=== PATIENT | female | born 1960 | race Caucasian/White ===

== ENCOUNTER 2016-12-21 11:11 | Observation (INO) ==
[2016-12-21 12:05] VITALS: BMI 52.3
[2016-12-21] MEDS: HYDROCODONE/APAP 7.5 MG/325 MG TABLET PO PRN ×3 (12:43→23:56)
[2016-12-21] MEDS: NICOTINE 21 MG PATCH TD SCH (12:44)
--- NOTE | 2016-12-21 13:40 | Consult Note ---
<Lynn Portillo - Last Filed: 12/21/16 18:11> Consult Information - Data of Consult Consult date: 12/21/16 Requesting Physician: Troy Martin DO Primary Care Provider: Ayan Mccarthy MD Family Provider: Ayan Mccarthy MD - Consult Narrative Reason for consult: preoperative clearance for vulvar abscess I&D History of present illness: Patient is a 56-year-old female at Dr. Mccarthy. She states approximately 2 weeks ago she noticed some itching which she thought was a yeast infection. Over the past 2 weeks she has noticed increasing swelling and pain. She presented to the emergency room 2 days ago and was started on clindamycin. She saw Dr. Martin in the office yesterday and he recommended incision and drainage of the abscess. They discussed pros and cons of doing this outpatient in the clinic versus under anesthesia and patient opted to have it done under anesthesia. Dr. Martin has consulted hospitalist service for preoperative clearance and management of chronic health problems. Patient was seen in her room with her family present. She is in moderate pain. Has been using Curtis 7.5 one to 2 pills when necessary. States that she feels nauseated due to the clindamycin. Is a smoker and has had her nicotine patch placed. She reports she is supposed to be on insulin and metformin but has not taken her medication for 7-8 months or more. Her daughter reports that she has not been taking them because they cost too much. At this time, the only routine medication she is taking is Vesicare for urinary incontinence. She reports she always has to wear a pad and currently has quite a bit of pain in the area of the abscess due to her incontinence. Patient also mentions that she has a breast mass in the left breast. She's noticed this for the last month and thinks it has grown over time. No family history of breast cancer, but has strong history of different types of cancer in the family. PFSH Medical History Diabetes mellitus type 2 CHF Hyperlipidemia COPD Obstructive sleep apnea Obesity Generalized anxiety disorder Chronic low back pain History of recurrent DVT Surgical History: Myringotomy. Tubal ligation. Appendectomy. Balloon dilation of esophagus (12/15/12). Colonoscopy with polypectomy (12/15/12). Cholecystectomy. Tonsillectomy Family History: Father-hyperlipidemia, diabetes, hypertension, CHF, obesity, thyroid disorder Mother-lung cancer, skin cancer Maternal grandmother-stroke Maternal grandfather-stroke Paternal grandfather-thyroid disorder, stomach cancer Daughter-ovarian cancer - Social History Smoking status: Current every day smoker (1 pack per day) Packs-years: 40 Substance use type: does not use Alcohol intake frequency: does not drink Housing: house Household members: spouse, children (son) Current occupational status: disabled (due to COPD, CHF-per patient) Social history: PCP-Dr. Mccarthy Review of Systems Comprehensive ROS: completed and no additional positive findings except those as stated - Respiratory Respiratory: Present: cough (chronic) - Gastrointestinal Gastrointestinal: Present: nausea (related to clindamycin) - Genitourinary Genitourinary: Present: dysuria (due to urine coming into contact with abscess.) , urinary incontinence (chronic), other (significant pain and swelling and redness to the vulvar area) Menstruation: post menopausal - Musculoskeletal Musculoskeletal: Present: back pain (chronic) - Integumentary/Breasts Breasts: mass (growing over the past month) Medications Home Medications Medication Instructions Recorded Confirmed Type LORazepam [Lorazepam] 1 mg PO BID PRN #0 02/22/12 12/21/16 History Benzocaine/Resorcin/Aloe/E,A,D 1 applic TOP PRN 12/19/16 12/21/16 History [Vagisil Cream] Hydrocodone/APAP 7.5/325 [Curtis 1 tab PO PRN PRN 12/19/16 12/21/16 History 7.5/325] Solifenacin Succinate [Vesicare] 10 mg PO DAILY 12/19/16 12/21/16 History Allergies Allergy/AdvReac Type Severity Reaction Status Date / Time Penicillins Allergy Severe SEIZURE Verified 12/19/16 11:23 Exam Vital Signs: Temperature 98.7 F 12/21/16 12:20 Pulse Rate 90 12/21/16 12:20 Respiratory Rate 20 12/21/16 12:20 Blood Pressure 148/89 H 12/21/16 12:20 Pulse Oximetry 97 12/21/16 12:20 Height/Weight/BMI: Height 1.6 m Weight 134.1 kg Body Mass Index 52.3 - Constitutional Present: mild distress (due to pain), well nourished, well developed, morbidly obese - Routine HEENT Exam Head: Present: normocephalic, atraumatic Eye: Present: EOMI, PERRL ENT: Present: mucous membranes moist, oropharynx clear. Absent: dentition normal (dentures) - Routine Neck Exam Present: supple - Routine Chest/Breast/Axilla Exam Breast: Present: mass (approximately 1 x 4 cm firm mass noted to the left breast at the 9:00-10:00 position.). Absent: tenderness, erythema, rashes - Routine Respiratory Exam Present: CTA bilaterally. Absent: wheezes (with deep breaths this causes cough , some coarse sounds with coughing spell) - Routine Cardiovascular Exam Present: RRR, S1, S2. Absent: murmur - Routine Abdominal Exam Present: soft, normoactive bowel sounds, non distended. Absent: tenderness - Routine Exam External: Present: swelling (approximately 10 cm area of induration to the right labia majora the significance redness, tenderness and swelling.), vulvar erythema, vulvar tenderness - Routine Extremities Exam Present: normal capillary refill - Routine Skin Exam Present: dry, warm - Routine Neurological Exam Present: alert, oriented X3 Cranial nerves III through XII grossly intact - Routine Psychiatric Exam Present: normal affect, normal thought process, cooperative Results - Labs CBC & Chem 7: 12/21/16 14:01 12/21/16 14:47 Assessment and Plan (1) Left breast mass Current visit: Yes Status: Acute Assessment and Plan: Assessment Vulvar abscess of the right labia majora Leukocytosis Breast mass-left breast (new finding) Diabetes mellitus type 2-uncontrolled CHF Hyperlipidemia COPD Obstructive sleep apnea Obesity Generalized anxiety disorder Chronic low back pain History of recurrent DVT Plan Appreciate consultation from Dr. Martin for preoperative evaluation of this patient with multiple chronic problems and noncompliance. Patient will require further workup prior to proceeding with surgery. She's been off almost all of her meds for the last 7-8 months. Clindamycin 300 mg IV every 6 hours for vulvar infection. Continue Curtis PRN and add when necessary morphine IV for pain. Consult Dr. Hwang for cardiac clearance. EKG showed normal sinus rhythm with evidence of possible past anterior infarct. Patient reports previous episode of chest pain which she thought could have been a heart attack for which she never sought treatment. 2-D echo has been ordered. Troponin is pending. Will place patient on telemetry. Lipids reviewed from PCPs office. Previously on Lipitor 20 mg daily. Can restart this on dismissal. Will monitor blood sugars and institute insulin sliding scale. Recommend restarting her metformin post-op. Will start DuoNeb treatments and incentive spirometry for her COPD. She has previously been prescribed albuterol and Dulera for her lung disease. Discussed finding of breast mass with Dr. Martin. This can be followed up outpatient through her PCP's (Dr. Mccarthy) office. This information was given to Dr. Mccarthy nurse. Lovenox and SCDs given her DVT history. Await clearance from cardiology prior to undergoing anesthesia. Hospital Course Summary Disclaimer: The visit summary below is not to be considered part of the above Progress Note. Hospital Course: 12/21/16-Hospitalist consult Appreciate consultation from Dr. Martin for preoperative evaluation of this patient with multiple chronic problems and noncompliance. Patient will require further workup prior to proceeding with surgery. She's been off almost all of her meds for the last 7-8 months. Clindamycin 300 mg IV every 6 hours for vulvar infection. Continue Curtis PRN and add when necessary morphine IV for pain. Consult Dr. Hwang for cardiac clearance. EKG showed normal sinus rhythm with evidence of possible past anterior infarct. Patient reports previous episode of chest pain which she thought could have been a heart attack for which she never sought treatment. 2-D echo has been ordered. Troponin is pending. Will place patient on telemetry. Lipids reviewed from PCPs office. Previously on Lipitor 20 mg daily. Can restart this on dismissal. Will monitor blood sugars and institute insulin sliding scale. Recommend restarting her metformin post-op. Will start DuoNeb treatments and incentive spirometry for her COPD. She has previously been prescribed albuterol and Dulera for her lung disease. Discussed finding of breast mass with Dr. Martin. This can be followed up outpatient through her PCP's (Dr. Mccarthy) office. This information was given to Dr. Mccarthy nurse. Lovenox and SCDs given her DVT history. Await clearance from cardiology prior to undergoing anesthesia. Sepsis Assessment - Evaluation Sepsis screening result: No Definite Risk <Kareem Miranda - Last Filed: 12/21/16 18:51> Consult Information - Data of Consult Requesting Physician: Troy Martin DO Primary Care Provider: Ayan Mccarthy MD Family Provider: Ayan Mccarthy MD [facility] Patient Stated Medical History Cerebrovascular Accident Yes: 10 years ago Congestive Heart Failure Yes Asthma Yes Chronic Obstructive Pulmonary Yes Disease (COPD) Diabetes Mellitus Type 2 Yes Hx Renal Disease No Hx Urinary Tract Infection Yes Osteoarthritis Yes: legs Gonorrhea Yes Anesthesia Reactions Yes: doesn't wake up Other Reproductive Yes: labial infection Exam Vital Signs: Temperature 96.3 F L 12/21/16 15:59 Pulse Rate 78 12/21/16 17:19 Respiratory Rate 16 12/21/16 17:19 Blood Pressure 171/89 H 12/21/16 15:59 Pulse Oximetry 94 12/21/16 17:19 Height/Weight/BMI: Height 5 ft 3 in Weight 134.1 kg Body Mass Index 52.3 Results - Labs CBC & Chem 7: 12/21/16 14:01 12/21/16 14:47 - ABG Interpretation ABG results: 12/21/16 18:11 ABG pH 7.460 H ABG pCO2 40 ABG pO2 69 L ABG HCO3 28 H ABG Total CO2 29.6 H ABG O2 Saturation 95.0 ABG Base Excess 4.2 H Assessment and Plan (1) Left breast mass Current visit: Yes Status: Acute Assessment and Plan: Above pt was seen and examined independently by me; agree with above plan of care. - Pt has had DVT in the past - Will check an ABG - Also due to H.O CHF will consult cardiology. She may need to have a 2-D echo. - Once cleared by cardiology may proceed with surgery - Pt has a breast mass - will order U/S Hospital Course Summary Disclaimer: The visit summary below is not to be considered part of the above Progress Note.
--- NOTE | 2016-12-21 15:30 | XRay Report ---
LOCATION OF DICTATION: [facility] EXAM: XR chest 2V HISTORY: pre-op COMPARISON: November 25, 2011. FINDINGS: The heart size is normal. The mediastinal configuration is unremarkable. There are no consolidating opacities or pleural effusions. There is no evidence for a pneumothorax. The osseous structures are within normal limits. IMPRESSION: No acute cardiopulmonary abnormality is identified. .
[2016-12-21] MEDS: CLINDAMYCIN PB 300 MG/50 ML BAG IV SCH ×2 (15:49→20:19)
[2016-12-21] MEDS: MORPHINE SULFATE 2 MG SYRINGE IVP PRN ×3 (15:49→23:57)
[2016-12-21] MEDS: ENOXAPARIN 40 MG/0.4 ML INJECTION SQ SCH (15:50)
--- NOTE | 2016-12-21 16:42 | Cardiology Consult Note ---
History of Present Illness Consult date: 12/21/16 <Kiley Dinero 12/21/16 16:53> Requesting physician: Kareem Miranda <Kiley Dinero 12/21/16 16:53> Consult reason: congestive heart failure <Kiley Dinero 12/21/16 16:53> Chief complaint: CHF, cardiac risk factors <Kiley Dinero 12/21/16 16:53> History of present illness: Teresa is a 56-year-old female of Dr. Mccarthy. She states approximately 2 weeks ago she noticed some itching which she thought was a yeast infection. Over the past 2 weeks she has noticed increasing swelling and pain. She presented to the emergency room 2 days ago and was started on clindamycin. She saw Dr. Martin in the office yesterday and he recommended incision and drainage of the abscess. They discussed pros and cons of doing this outpatient in the clinic versus under anesthesia and patient opted to have it done under anesthesia. Dr. Martin consulted hospitalist service for preoperative clearance and management of chronic health problems. She is seen in her room with her family present. She reports episodes of chest pain/ pressure which is brought on by coughing which she never sought treatment. She reports chronic cough related to COPD and states she has smoked for 40 years and has no plans to quit. Dr. Hwang is consulted for cardiac clearance. EKG showed normal sinus rhythm with evidence of possible past anterior infarct. 2-D echo has been ordered. Troponin is pending. Echo and Nuclear stress from 2007 reviewed. <Kiley Dinero 12/21/16 16:53> Review of Systems - Constitutional Constitutional: Absent: chills, fever(s), weight gain, weight loss <Kiley Dinero 12/21/16 16:53> - EENMT Eyes: Absent: change in vision <Kiley Dinero 12/21/16 16:53> Balance: Absent: vertigo <Kiley Dinero 12/21/16 16:53> Mouth/Throat: Absent: sore throat <Kiley Dinero 12/21/16 16:53> - Cardiovascular Cardiovascular: Present: chest pain, dyspnea on exertion. Absent: palpitations , syncope <BarKiley Johnson 12/21/16 16:53> Vascular: Absent: pedal edema <Kiley Dinero 12/21/16 16:53> - Respiratory Respiratory: Present: cough, dyspnea, dyspnea on exertion, wheezing <Kiley Dinero 12/21/16 16:53> - Gastrointestinal Gastrointestinal: Absent: diarrhea, nausea, vomiting <Kiley Dinero 16:53> - Genitourinary Genitourinary: Present: as per HPI. Absent: dysuria <Kiley Dinero 16:53> Menstruation: post menopausal <Kiley Dinero 12/21/16 16:53> - Integumentary/Breasts Breasts: mass (growing over the past month) <Kiley Dinero 12/21/16 16:53> - Neurological Neurological: Absent: dizziness <Kiley Dinero 12/21/16 16:53> - Endocrine Endocrine: Absent: palpitations <Kiley Dinero 12/21/16 16:53> [facility] Patient Stated Medical History Cerebrovascular Accident Yes: 10 years ago Congestive Heart Failure Yes Asthma Yes Chronic Obstructive Pulmonary Yes Disease (COPD) Sleep Apnea Yes: Does not use CPAP Diabetes Mellitus Type 1 Yes: Uncontrolled/ patient took herself off insulin 1 year ago A1C 11.3 Diabetes Mellitus Type 2 Yes Hx Renal Disease No Hx Urinary Tract Infection Yes Osteoarthritis Yes: legs Gonorrhea Yes Anesthesia Reactions Yes: doesn't wake up Other Reproductive Yes: labial infection <JyotiSilvino pat - 12/29/16 07:57> Patient Stated Medical History Cerebrovascular Accident Yes: 10 years ago Congestive Heart Failure Yes Asthma Yes Chronic Obstructive Pulmonary Yes Disease (COPD) Diabetes Mellitus Type 2 Yes Hx Renal Disease No Hx Urinary Tract Infection Yes Osteoarthritis Yes: legs Gonorrhea Yes Anesthesia Reactions Yes: doesn't wake up Other Reproductive Yes: labial infection <Kiley Dinero 12/21/16 16:53> Surgical History: Myringotomy. Tubal ligation. Appendectomy. Balloon dilation of esophagus (12/15/12). Colonoscopy with polypectomy (12/15/12). Cholecystectomy. Tonsillectomy <Kiley Dinero 12/21/16 16:53> Family History: Father-hyperlipidemia, diabetes, hypertension, CHF, obesity, thyroid disorder Mother-lung cancer, skin cancer Maternal grandmother-stroke Maternal grandfather-stroke Paternal grandfather-thyroid disorder, stomach cancer Daughter-ovarian cancer <Kiley Dinero 12/21/16 16:53> - Social History Smoking status: Current every day smoker (1 pack per day) <Kiley Dinero 16:53> Packs-years: 40 <Kiley Dinero 12/21/16 16:53> Time spent discussing smoking cessation with patient: 3 to 10 minutes < Kiley Dinero 12/21/16 16:53> Substance use type: does not use <Kiley Dinero 12/21/16 16:53> Alcohol intake frequency: does not drink <Kiley Dinero 12/21/16 16:53> Housing: house <Kiley Dinero 12/21/16 16:53> Household members: spouse, children <Kiley Dinero 12/21/16 16:53> Current occupational status: disabled <Kiley Dinero 12/21/16 16:53> Current residence: Apartment/Private Home <Kiley Dinero 12/21/16 16:53> Medications Home Medications Medication Instructions Recorded Confirmed Type LORazepam [Lorazepam] 1 mg PO BID PRN #0 02/22/12 12/21/16 History Benzocaine/Resorcin/Aloe/E,A,D 1 applic TOP PRN 12/19/16 12/21/16 History [Vagisil Cream] Hydrocodone/APAP 7.5/325 [[place] 1 tab PO PRN PRN 12/19/16 12/21/16 History 7.5/325] Solifenacin Succinate [Vesicare] 10 mg PO DAILY 12/19/16 12/21/16 History <Silvino Hwang - 12/29/16 07:57> Allergies Allergy/AdvReac Type Severity Reaction Status Date / Time Penicillins Allergy Severe SEIZURE Verified 12/19/16 11:23 <Silvino Hwang - 12/29/16 07:57> Exam Vital signs: Temperature 98.5 F 12/22/16 10:45 Pulse Rate 99 12/22/16 14:15 Respiratory Rate 14 12/22/16 13:15 Blood Pressure 123/65 12/22/16 14:15 Pulse Oximetry 94 12/22/16 14:15 <Silvino Hwang - 12/29/16 07:57> Temperature 96.3 F L 12/21/16 15:59 Pulse Rate 88 12/21/16 16:00 Respiratory Rate 20 12/21/16 15:59 Blood Pressure 171/89 H 12/21/16 15:59 Pulse Oximetry 93 12/21/16 15:59 <Kiley Dinero 12/21/16 16:53> - Constitutional no acute distress, morbidly obese, cooperative <Kiley Dinero 12/21/16 16: 53> - Routine HEENT Exam Head: Present: normocephalic <Kiley Dinero 12/21/16 16:53> ENT: Present: mucous membranes moist <Kiley Dinero 12/21/16 16:53> - Routine Neck Exam Absent: JVD, carotid bruit <Kiley Dinero 12/21/16 16:53> - Routine Chest/Breast/Axilla Exam Chest wall: Absent: tenderness <Kiley Dinero 12/21/16 16:53> - Routine Respiratory Exam Present: wheezes. Absent: CTA bilaterally <Kiley Dinero 12/21/16 16:53> - Routine Cardiovascular Exam Present: RRR, no murmur. Absent: JVD <Kiley Dinero 12/21/16 16:53> - Routine Abdominal Exam Present: soft, normoactive bowel sounds <Kiley Dinero 12/21/16 16:53> - Routine Extremities Exam Present: no edema <Kiley Dinero 12/21/16 16:53> - Routine Skin Exam Present: intact, dry, warm <Kiley Dinero 12/21/16 16:53> - Routine Neurological Exam Present: alert, oriented X3 <Kiley Dinero 12/21/16 16:53> - Routine Psychiatric Exam Present: normal affect, normal thought process <Kiley Dinero 12/21/16 16: 53> Results 12/21/16 14:01 12/21/16 14:47 <Silvino Hwang 12/29/16 07:57> Cardiac Enzymes 12/21/16 12/21/16 Range/Units 14:47 14:47 AST 26 (14-36) U/L Troponin I < 0.012 (0-0.12) ng/ml CBC 12/21/16 Range/Units 14:01 WBC 12.5 H (4.5-11.0) T/MM3 RBC 4.59 (4.00-5.20) M/MM3 Hgb 12.8 (12-16) GM/DL Hct 38.6 (36-46) % Plt Count 205 (130-400) T/MM3 Neut # 9.0 H (1.8-7.7) T/MM3 Lymph # 2.4 (1-4.8) T/MM3 [place] # 0.8 (0-0.8) T/MM3 Eos # 0.2 (0-0.5) T/MM3 Baso # 0.0 (0-0.2) T/MM3 Comprehensive Metabolic Panel 12/21/16 Range/Units 14:47 Sodium 135 (134-144) MEQ/L Potassium 4.4 (3.6-5) MEQ/L Chloride 102 (98-107) MEQ/L Carbon Dioxide 24 (22-30) MEQ/L BUN 9.0 (7-17) MG/DL Creatinine 0.5 L (0.7-1.2) MG/DL Glucose 276 H (65-110) MG/DL Calcium 9.4 (8.4-10.2) MG/DL AST 26 (14-36) U/L ALT 24 (9-52) U/L Alkaline Phosphatase 126 (38-126) U/L Total Protein 7.3 (6.3-8.2) G/DL Albumin 3.9 (3.5-5.0) G/DL Intake and Output 12/21/16 12/21/16 12/21/16 06:59 14:59 22:59 Intake Total 50 / 50 Balance 50 / 50 Intake: IV 50 / 50 CLEOCIN PREMIX 300 mg In 50 / 50 50 ml @ 100 mls/hr IV Q6H [facility] Rx#:[id number] Other: # Bowel Movements 0 Weight 295 lb 10.238 oz Patient Weight 12/22/16 06:59 Weight 295 lb 10.238 oz Laboratory Results - last 48 hr 12/21/16 12/21/16 12/21/16 13:22 14:01 14:12 WBC 12.5 H RBC 4.59 Hgb 12.8 Hct 38.6 MCV 84.1 MCH 27.9 MCHC 33.2 RDW Std Deviation 41.2 Plt Count 205 MPV 10.2 Immature Gran % (Auto) 0.2 Neut % (Auto) 72.2 H Lymph % (Auto) 19.1 L [place] % (Auto) 6.6 Eos % (Auto) 1.7 Baso % (Auto) 0.2 Neut # 9.0 H Lymph # 2.4 [place] # 0.8 Eos # 0.2 Baso # 0.0 Abs Immat Gran (auto) 0.02 Turbidity Sodium Potassium Chloride Carbon Dioxide Anion Gap BUN Creatinine GFR Calculation BUN/Creatinine Ratio Glucose Hemoglobin A1c 11.7 H Calculated Osmolality Calcium Total Bilirubin Icterus Index AST ALT Alkaline Phosphatase Troponin I Total Protein Albumin Globulin Albumin/Globulin Ratio Specimen Hemolysis Ur Collection Type Urine Color Urine Clarity Urine pH Ur Specific [place] Urine Protein Urine Glucose (UA) Urine Ketones Urine Occult Blood Urine Nitrate Urine Bilirubin Urine Urobilinogen Ur Leukocyte Esterase Urinalysis Comment Specimen Comment Lab to recollect Tests Not Done Cmp Reason Tests Not Done Hemolyzed specimen 12/21/16 12/21/16 12/21/16 14:47 14:47 15:26 WBC RBC Hgb Hct MCV MCH MCHC RDW Std Deviation Plt Count MPV Immature Gran % (Auto) Neut % (Auto) Lymph % (Auto) [place] % (Auto) Eos % (Auto) Baso % (Auto) Neut # Lymph # [place] # Eos # Baso # Abs Immat Gran (auto) Turbidity < 20 Sodium 135 Potassium 4.4 Chloride 102 Carbon Dioxide 24 Anion Gap 9 BUN 9.0 Creatinine 0.5 L GFR Calculation 128 BUN/Creatinine Ratio 18 Glucose 276 H Hemoglobin A1c Calculated Osmolality 269 Calcium 9.4 Total Bilirubin 0.80 Icterus Index < 2 AST 26 ALT 24 Alkaline Phosphatase 126 Troponin I < 0.012 Total Protein 7.3 Albumin 3.9 Globulin 3.4 Albumin/Globulin Ratio 1.1 Specimen Hemolysis 57 H 56 H Ur Collection Type Urine, clean catch Urine Color Yellow Urine Clarity Clear Urine pH 5.0 Ur Specific [place] >=1.030 H Urine Protein Trace A Urine Glucose (UA) 2+ A Urine Ketones Negative Urine Occult Blood Trace-intact Urine Nitrate Negative Urine Bilirubin Negative Urine Urobilinogen 0.2 Ur Leukocyte Esterase Negative Urinalysis Comment Microscopic not ind. Specimen Comment Tests Not Done Reason Tests Not Done <Kiley Dinero - 12/21/16 16:53> - Imaging and Cardiology Echo: pending <Kiley Dinero - 12/21/16 16:53> EKG results: image reviewed <Kiley Dinero - 12/21/16 16:53> Imaging & Cardiology Narrative: Date of Exam: 12/21/16 Ordering Provider: Troy Martin DO Type of Exam(s): XR chest 2V Reason for Exam(s): pre-op LOCATION OF DICTATION: [place] EXAM: XR chest 2V HISTORY: pre-op COMPARISON: November 25, 2011. FINDINGS: The heart size is normal. The mediastinal configuration is unremarkable. There are no consolidating opacities or pleural effusions. There is no evidence for a pneumothorax. The osseous structures are within normal limits. IMPRESSION: No acute cardiopulmonary abnormality is identified. 12/21/16 16:47 Date of Exam: 12/21/16 Type of Exam(s): US echo doppler complete DATE OF PROCEDURE December 21, 2016 This is a two-dimensional echo with spectral Doppler, color-flow and M-mode. It was obtained in a patient with preop clearance and history of congestive heart failure and multiple risk factors for coronary artery disease. Left atrial dimension is at the upper limits of normal. Left ventricle end- diastolic dimension is normal. Left ventricle wall thickness is normal. LV systolic function is normal with ejection fraction of 62%. Right atrium is normal. Right ventricle is normal. Aortic root dimension is normal. Mitral valve is morphologically normal with trace of mitral regurgitation. Aortic valve was not visualized well, but Doppler studies indicate no stenosis or insufficiency. Tricuspid valve shows trace of tricuspid regurgitation with normal estimated pulmonary artery systolic pressure of 31. Pulmonary valve was not visualized. There is no pericardial effusion. IMPRESSION 1. Technically difficult study. 2. Normal LV systolic function with ejection fraction of 62%. 3. Trace of mitral regurgitation. 4. Trace of tricuspid regurgitation with normal estimated pulmonary artery systolic pressure of 31 <Kiley Dinero - 12/22/16 13:58> - EKG Interpretation EKG: sinus rhythm <Kiley Dinero - 12/21/16 16:53> EKG interpretations - EKG EKG results cardiology: sinus rhythm <Kiley Dinero Elizabeth - 12/21/16 16:53> - Blocks, axis, hypertrophy, ST abn AV and intraventricular conduction: left anterior fascicular block <Bar Kiley Johnson - 12/21/16 16:53> Assessment and Plan - Attestation Attestation Narrative: 12/29/16 07:57 Recommendation After examining the patient I agree with the above assessment. I am involved in the formulation of the patient's plan of care. <Silvino Hwang - 12/29/16 07:57> - Assessment and Plan (1) Vulvar abscess Status: Acute (2) Mixed hyperlipidemia Status: Acute (3) COPD (chronic obstructive pulmonary disease) Status: Acute (4) Diabetes mellitus type 2, uncontrolled Status: Acute (5) Morbid obesity with BMI of 50.0-59.9, adult Status: Acute (6) Sleep apnea Status: Acute <Silvino Hwang - 12/29/16 07:57> (1) Vulvar abscess Status: Acute Surgical incision and drainage of abscess is a low risk procedure that the patient should proceed with as planned. Plan outpatient stress test for further evaluation of chest pain. Thank you for allowing us to participate in the care of this patient. (2) Mixed hyperlipidemia Status: Acute (3) COPD (chronic obstructive pulmonary disease) Status: Acute (4) Diabetes mellitus type 2, uncontrolled Status: Acute (5) Morbid obesity with BMI of 50.0-59.9, adult Status: Acute (6) Sleep apnea Status: Acute <BarKiley gan - 12/22/16 13:58> Hospital Course Summary Disclaimer: The visit summary below is not to be considered part of the above Progress Note. <Silvino Hwang - 12/29/16 07:57> The visit summary below is not to be considered part of the above Progress Note. <Kiley Dinero - 12/21/16 16:53> Hospital Course: 12/21/16-Hospitalist consult Appreciate consultation from Dr. Martin for preoperative evaluation of this patient with multiple chronic problems and noncompliance. Patient will require further workup prior to proceeding with surgery. She's been off almost all of her meds for the last 7-8 months. Clindamycin 300 mg IV every 6 hours for vulvar infection. Continue [place] PRN and add when necessary morphine IV for pain. Consult Dr. Hwang for cardiac clearance. EKG showed normal sinus rhythm with evidence of possible past anterior infarct. Patient reports previous episode of chest pain which she thought could have been a heart attack for which she never sought treatment. 2-D echo has been ordered. Troponin is pending. Will place patient on telemetry. Lipids reviewed from PCPs office. Previously on Lipitor 20 mg daily. Can restart this on dismissal. Will monitor blood sugars and institute insulin sliding scale. Recommend restarting her metformin post-op. Will start DuoNeb treatments and incentive spirometry for her COPD. She has previously been prescribed albuterol and Dulera for her lung disease. Discussed finding of breast mass with Dr. Martin. This can be followed up outpatient through her PCP's (Dr. Mccarthy) office. This information was given to Dr. Mccarthy nurse. Lovenox and SCDs given her DVT history. Await clearance from cardiology prior to undergoing anesthesia. 12/21/16 Cardiology Surgical incision and drainage of abscess is a low risk procedure that the patient should proceed with as planned. Plan outpatient stress test for further evaluation of chest pain. Thank you for allowing us to participate in the care of this patient. <Kiley Dinero - 12/22/16 13:58> Sepsis Assessment - Evaluation Sepsis screening result: No Definite Risk <Kiley Dinero - 12/21/16 16:53>
[2016-12-21] MEDS: ALBUTEROL/IPRATROPIUM 2.5mg-0.5mg/3ml NEB AEROSOL SCH ×3 (16:49→20:58)
[2016-12-21] MEDS: INSULIN ASPART 100unit/ml INJECTION SQ PRN ×2 (17:21→20:35)
--- NOTE | 2016-12-21 18:07 | OB/GYN History & Physical ---
- History of Present Illness Date of Admission: 12/21/16 11:22 Reason for Admission: other (Labial Abscess) History of Present Illness: Pt had onset of itching x 1 week that lead to increase in itching and then pain. Was seen in ED over weekend no abscess appreciated for drainage but cellulitis suspected. started on clindamycin secondary to PCN allergy. Was seen in Clinic today for f/u large 10 cm labial abscess noted. Discussion of I&D in office vs in OR. Pt preferred OR. Significant comorbidities and pt admitted for hospitalist consult and preoperative evaluation. Review of Systems - Constitutional Constitutional: Absent: anorexia, chills - EENT Eyes: Absent: as per HPI, blurry vision - Cardiovascular Cardiovascular: Absent: chest pain - Respiratory Respiratory: Present: cough - Gastrointestinal Gastrointestinal: Absent: abdominal pain - Genitourinary Genitourinary: Present: vaginal pruritus Menstruation: Present: post menopausal - Musculoskeletal Musculoskeletal: Absent: abnormal gait - Integumentary/Breasts Integumentary: Present: swelling - Neurological Neurological: Absent: abnormal gait - Psychiatric Psychiatric: Absent: abnormal sleep pattern - Endocrine Endocrine: Absent: cold intolerance PFSH Patient Stated Medical History Cerebrovascular Accident Yes: 10 years ago Congestive Heart Failure Yes Asthma Yes Chronic Obstructive Pulmonary Yes Disease (COPD) Diabetes Mellitus Type 2 Yes Hx Renal Disease No Hx Urinary Tract Infection Yes Osteoarthritis Yes: legs Gonorrhea Yes Anesthesia Reactions Yes: doesn't wake up Other Reproductive Yes: labial infection Surgical History: Myringotomy. Tubal ligation. Appendectomy. Balloon dilation of esophagus (12/15/12). Colonoscopy with polypectomy (12/15/12). Cholecystectomy. Tonsillectomy - Social History Smoking status: Current every day smoker (1 pack per day) Time spent discussing smoking cessation with patient: 3 to 10 minutes Substance use type: does not use Alcohol intake frequency: does not drink Household members: spouse Current residence: Apartment/Private Home Medications Home Medications Medication Instructions Recorded Confirmed Type LORazepam [Lorazepam] 1 mg PO BID PRN #0 02/22/12 12/21/16 History Benzocaine/Resorcin/Aloe/E,A,D 1 applic TOP PRN 12/19/16 12/21/16 History [Vagisil Cream] Hydrocodone/APAP 7.5/325 [[place] 1 tab PO PRN PRN 12/19/16 12/21/16 History 7.5/325] Solifenacin Succinate [Vesicare] 10 mg PO DAILY 12/19/16 12/21/16 History Allergies Allergy/AdvReac Type Severity Reaction Status Date / Time Penicillins Allergy Severe SEIZURE Verified 12/19/16 11:23 [employer] Exam Vital signs: Temperature 96.3 F L 12/21/16 15:59 Pulse Rate 78 12/21/16 17:19 Respiratory Rate 16 12/21/16 17:19 Blood Pressure 171/89 H 12/21/16 15:59 Pulse Oximetry 94 12/21/16 17:19 - Constitutional Present: no acute distress, morbidly obese, cooperative - Routine HEENT Exam Head: Present: normocephalic Eye: Present: EOMI, PERRL ENT: Present: mucous membranes moist - Routine Neck Exam Present: supple. Absent: JVD, carotid bruit - Routine Chest/Breast/Axilla Exam Chest wall: Absent: tenderness Breast: Present: mass (approximately 1 x 4 cm firm mass noted to the left breast at the 9:00-10:00 position.). Absent: tenderness, erythema, rashes - Routine Respiratory Exam Present: wheezes. Absent: CTA bilaterally - Routine Cardiovascular Exam Present: RRR, no murmur. Absent: JVD - Routine Abdominal Exam Present: soft, normoactive bowel sounds - Detailed Pelvic Exam Vulva: Present: erythema, lesion - Routine Extremities Exam Extremities: Present: no edema - Routine Neurological Exam Present: oriented X3 [employer] Results - Labs CBC & Chem 7: 12/21/16 14:01 12/21/16 14:47 Labs: UA Ur Collection Type Urine, clean catch 12/21/16 15:26 Urine Color Yellow (YELLOW) 12/21/16 15:26 Urine pH 5.0 (5.0-8.0) 12/21/16 15:26 Ur Specific [place] >=1.030 (1.015-1.025) H 12/21/16 15:26 Urine Protein Trace (NEGATIVE) A 12/21/16 15:26 Urine Glucose (UA) 2+ (NEGATIVE) A 12/21/16 15:26 Urine Ketones Negative (NEGATIVE) 12/21/16 15:26 Urine Occult Blood Trace-intact (NEGATIVE) 12/21/16 15:26 Urine Nitrate Negative (NEGATIVE) 12/21/16 15:26 Urine Bilirubin Negative (NEGATIVE) 12/21/16 15:26 Urine Urobilinogen 0.2 EU/DL (NORMAL) 12/21/16 15:26 Ur Leukocyte Esterase Negative (NEGATIVE) 12/21/16 15:26 Assessment and Plan (1) Other abscess of vulva Current visit: Yes Status: Acute Admit for pre op eval, scheduled for I&D of labial abscess in OR 12/22/16. Discussed in office at apt extensively including R/B/A Hospitalist consulted for pre op eval and management of comorbidities, appreciate recs.
[2016-12-22] MEDS: CLINDAMYCIN PB 300 MG/50 ML BAG IV SCH ×3 (02:37→15:41)
[2016-12-22] MEDS ORDERED: LR 1,000 ML IV SCH ×2 (06:00→08:45)
[2016-12-22] MEDS: INSULIN ASPART 100unit/ml INJECTION SQ PRN ×2 (06:11→12:01)
[2016-12-22] MEDS: MORPHINE SULFATE 2 MG SYRINGE IVP PRN ×2 (06:11→12:03)
[2016-12-22] MEDS: ALBUTEROL/IPRATROPIUM 2.5mg-0.5mg/3ml NEB AEROSOL SCH ×2 (07:27→11:36)
[2016-12-22] MEDS: NICOTINE 21 MG PATCH TD SCH (08:08)
[2016-12-22] MEDS ORDERED: PROPOFOL 1,000 MG/100 ML VIAL IV ONE (08:49)
[2016-12-22] MEDS ORDERED: BUPIVACAINE 0.25%/EPI 1:200,000 30ml SDV ONE (08:53)
[2016-12-22] MEDS ORDERED: FentaNYL 100 MCG/2 ML INJECTION ONE (08:54)
--- NOTE | 2016-12-22 08:56 | Anesthesia Preoperative Report ---
Anesthesia Preoperative Record - Date and Time Date: 12/22/16 Preoperative Diagnosis: Right Labial Abscess Proposed Procedure: I&D of vulvar abscess NPO Since Date: 12/22/16 NPO Since Time: 00:00 Allergies/Adverse Reactions: Allergies Allergy/AdvReac Type Severity Reaction Status Date / Time Penicillins Allergy Severe SEIZURE Verified 12/19/16 11:23 - Vital Signs Vital Signs: Temperature 98.1 F 12/22/16 08:32 Pulse Rate 95 12/22/16 08:32 Respiratory Rate 18 12/22/16 08:32 Blood Pressure 130/79 12/22/16 08:32 Pulse Oximetry 98 12/22/16 08:51 Height and Weight: Height 1.6 m Weight 135.4 kg Body Mass Index 52.3 - Medications Inpatient Medications: Current Medications Acetaminophen/Hydrocodone Bitart ([place] 7.5/325) 1 tab PO Q4H PRN PRN Reason: Pain Last Admin: 12/21/16 23:56 Dose: 1 tab Albuterol/Ipratropium (Duoneb) 3 ml AEROSOL QID [facility] Last Admin: 12/22/16 07:27 Dose: 3 ml Enoxaparin Sodium (Lovenox) 40 mg SQ DAILY [facility] Last Admin: 12/21/16 15:50 Dose: 40 mg Clindamycin Phosphate (Cleocin Premix) 300 mg in 50 mls @ 100 mls/hr IV Q6H [facility] Last Infusion: 12/22/16 03:35 Dose: Infused Lactated Ringer's (Lactated Ringers) 1,000 mls @ 125 mls/hr IV .Q8H [facility] Last Infusion: 12/22/16 08:25 Dose: 0 mls/hr Lactated Ringer's (Lactated Ringers) 1,000 mls @ 50 mls/hr IV .Q20H [facility] Last Admin: 12/22/16 08:51 Dose: 50 mls/hr Insulin Aspart (Novolog) 0 unit SQ SS PRN; Protocol PRN Reason: Hyperglycemia Last Admin: 12/22/16 06:11 Dose: 3 unit Morphine Sulfate (Morphine Sulfate Inj) 2 mg IVP Q3-4HR PRN PRN Reason: Pain Last Admin: 12/22/16 06:11 Dose: 2 mg Nicotine (Nicoderm) 21 mg TD DAILY [facility] Last Admin: 12/22/16 08:08 Dose: 21 mg Nicotine (Nicotine Patch Removal) 1 removal TD DAILY [facility] Last Admin: 12/22/16 08:09 Dose: 1 removal Nystatin (Mycostatin) 1 applic TP BID [facility] Last Admin: 12/22/16 04:04 Dose: 1 applic Home Medications: Home Medications Medication Instructions Recorded Confirmed Type RX: LORazepam [Lorazepam] 1 mg PO BID PRN #0 02/22/12 12/21/16 History RX: Benzocaine/Resorcin/Aloe/E,A,D 1 applic TOP PRN 12/19/16 12/21/16 History [Vagisil Cream] RX: Hydrocodone/APAP 7.5/325 1 tab PO PRN PRN 12/19/16 12/21/16 History [[place] 7.5/325] RX: Solifenacin Succinate 10 mg PO DAILY 12/19/16 12/21/16 History [Vesicare] Is Patient on Beta Dillan?: No - Medical History Respiratory: Reports: Chronic Obstructive Pulmonary Disease (COPD), Sleep Apnea (Does not use CPAP) Cardiovascular: Reports: Congestive Heart Failure Gastrointestional: Reports: Morbid Obesity Renal/Endocrine: Reports: Diabetes Mellitus Type 1 (Uncontrolled/ patient took herself off insulin 1 year ago A1C 11.3) - Surgical History Cardiac Surgeries/Treatments: DENIES: Pacemaker Reproductive Surgery/Treatment: DENIES: Mastectomy Anesthesia Reactions: None Hx Family Anesthesia Reaction: No History of Motion Sickness: No - Social History Smoking Status: Current every day smoker (1 pack per day) packs per day: 1 Pack-years: 40 Hx Chewing Tobacco Use: No Second Hand Exposure: No Time spent discussing smoking cessation with patient: 3 to 10 minutes Substance Use Type: does not use Alcohol Intake Frequency: does not drink - Pertinent Findings Laboratory: CBC and BMP 12/21/16 14:01 12/21/16 14:47 BMP 12/21/16 14:47 Sodium 135 Potassium 4.4 Chloride 102 Carbon Dioxide 24 BUN 9.0 Creatinine 0.5 L Glucose 276 H Calcium 9.4 Cardiac Enzymes 12/21/16 Range/Units 14:47 Troponin I < 0.012 (0-0.12) ng/ml Liver Function 12/21/16 Range/Units 14:47 Total Bilirubin 0.80 (0.20-1.30) MG/DL AST 26 (14-36) U/L ALT 24 (9-52) U/L Alkaline Phosphatase 126 (38-126) U/L Albumin 3.9 (3.5-5.0) G/DL Urine 12/21/16 Range/Units 15:26 Urine Color Yellow (YELLOW) Urine Clarity Clear Urine pH 5.0 (5.0-8.0) Ur Specific [place] >=1.030 H (1.015-1.025) Urine Protein Trace A (NEGATIVE) Urine Glucose (UA) 2+ A (NEGATIVE) EKG Rhythm: Normal Sinus Rhythm - Physical Exam Respiratory Exam: Present: lungs clear, decreased breath sounds-L, decreased breath sounds-R Cardiovascular Exam: Present: regular rate and rhythm - Airway Assessment Mallampati Score: II TMD: 3 Fingerbreadths Neck Extension: fair Teeth: upper dentures, lower dentures Overall Assessment: may be difficult mask vent, may be difficult intubation - ASA ASA Score: 3 - Plan Anesthesia: General TIVA - Discussion Discussion: Discussed risks/options/alternatives of anesthesia and questions answered. Patient consents. Nursing pain assessment noted. Attestation Statement: Prior to the delivery of any anesthetic medication, I examined the patient, developed the plan, obtained the patient's consent and discussed the risk and benefits of the procedure with the patient/guardian.
--- NOTE | 2016-12-22 08:57 | Echocardiogram ---
DATE OF PROCEDURE December 21, 2016 This is a two-dimensional echo with spectral Doppler, color-flow and M-mode. It was obtained in a patient with preop clearance and history of congestive heart failure and multiple risk factors for coronary artery disease. Left atrial dimension is at the upper limits of normal. Left ventricle end- diastolic dimension is normal. Left ventricle wall thickness is normal. LV systolic function is normal with ejection fraction of 62%. Right atrium is normal. Right ventricle is normal. Aortic root dimension is normal. Mitral valve is morphologically normal with trace of mitral regurgitation. Aortic valve was not visualized well, but Doppler studies indicate no stenosis or insufficiency. Tricuspid valve shows trace of tricuspid regurgitation with normal estimated pulmonary artery systolic pressure of 31. Pulmonary valve was not visualized. There is no pericardial effusion. IMPRESSION 1. Technically difficult study. 2. Normal LV systolic function with ejection fraction of 62%. 3. Trace of mitral regurgitation. 4. Trace of tricuspid regurgitation with normal estimated pulmonary artery systolic pressure of 31. MTDD
[2016-12-22] MEDS ORDERED: NICOTINE PATCH REMOVAL TD SCH (09:00)
[2016-12-22] MEDS ORDERED: HYDROMORPHONE 2 MG/ML INJECTION IVP PRN (09:25)
[2016-12-22] MEDS ORDERED: METOCLOPRAMIDE 10mg/2ml INJECTION IVP PRN ×2 (09:25→10:45)
[2016-12-22] MEDS ORDERED: ONDANSETRON 4 MG/2 ML INJECTION IVP PRN (09:25)
--- NOTE | 2016-12-22 09:42 | OB/GYN Procedure Note ---
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
[2016-12-22] MEDS ORDERED: LORazepam 1 MG TABLET PO PRN (09:45)
[2016-12-22] MEDS ORDERED: HYDROCODONE/APAP 7.5 MG/325 MG TABLET PO PRN (09:45)
[2016-12-22] MEDS ORDERED: ONDANSETRON ODT 4 MG TABLET PO PRN (09:45)
[2016-12-22] MEDS ORDERED: INSULIN REGULAR, HUMAN 100 UNIT/ML INJECTION SQ ONE (09:55)
--- NOTE | 2016-12-22 10:05 | Anesthesia Postoperative Note ---
- Date and Time Date: 12/22/16 Time: 10:04 - Status Patient Participated in Evaluation: Patient Participated in Person Vital Signs: Temperature 98.1 F 12/22/16 08:32 Pulse Rate 95 12/22/16 08:32 Respiratory Rate 18 12/22/16 08:32 Blood Pressure 130/79 12/22/16 08:32 Pulse Oximetry 98 12/22/16 08:51 Respiratory Function: Airway Patent Cardiovascular Function: Regular Pulse EKG Rhythm: Normal Sinus Rhythm Mental Status: Alert and Oriented Pain Intensity: 2 Hydration: IV Infusing Complications During Recover: None Apparent - Follow-Up Instructions Instructions: Per Surgeon
[2016-12-22 10:55] VITALS: TEMP 98.5
--- NOTE | 2016-12-22 11:29 | Progress Note ---
<Lynn Portillo - Last Filed: 12/22/16 14:07> Subjective: Patient is seen post procedure in her room. She reports she is doing "great." She has much less pain. Rates it 2/10. She states that Dr. Mccarthy has her [place] prescription waiting for her to product picker. She reports she had no problem waking up from anesthesia. Is not having any cough or shortness of breath. No nausea or vomiting. She states she is very thirsty and can't wait to get her diet Pepsi. She also reports that when she is cleared to eat her family has a Whopper and onion rings waiting for her. Dr. Martin reports that her procedure went well. He plans to send her home this afternoon. Objective Vital signs: Temperature 98.5 F 12/22/16 10:45 Pulse Rate 90 12/22/16 11:11 Respiratory Rate 16 12/22/16 11:11 Blood Pressure 191/87 H 12/22/16 11:11 Pulse Oximetry 95 12/22/16 11:11 Height/Weight/BMI: Height 1.6 m Weight 135.4 kg Body Mass Index 52.3 - Constitutional Present: no acute distress, well nourished, well developed, obese - Routine Respiratory Exam Present: CTA bilaterally. Absent: wheezes - Routine Cardiovascular Exam Present: RRR, S1, S2. Absent: murmur - Routine Abdominal Exam Present: soft, normoactive bowel sounds, non distended. Absent: tenderness - Routine Extremities Exam Present: no edema, normal capillary refill - Routine Skin Exam Present: dry, warm - Routine Neurological Exam Present: alert, oriented X3 - Routine Lymphatic Exam Lymphatic: Absent: adenopathy - Routine Psychiatric Exam Present: normal affect, normal thought process Results - Labs CBC & Chem 7: 12/21/16 14:01 12/21/16 14:47 Microbiology Results: Microbiology 12/22/16 09:18 Surgical Site Surgical Culture - Preliminary Culture Initiated - Results Pending - ABG Interpretation ABG results: 12/21/16 18:11 ABG pH 7.460 H ABG pCO2 40 ABG pO2 69 L ABG HCO3 28 H ABG Total CO2 29.6 H ABG O2 Saturation 95.0 ABG Base Excess 4.2 H Additional comments: Overnight oximetry was performed. Patient did not drop below 90%. - Echocardiogram Echocardiogram: Date of Exam: 12/21/16 Type of Exam(s): US echo doppler complete DATE OF PROCEDURE December 21, 2016 This is a two-dimensional echo with spectral Doppler, color-flow and M-mode. It was obtained in a patient with preop clearance and history of congestive heart failure and multiple risk factors for coronary artery disease. Left atrial dimension is at the upper limits of normal. Left ventricle end- diastolic dimension is normal. Left ventricle wall thickness is normal. LV systolic function is normal with ejection fraction of 62%. Right atrium is normal. Right ventricle is normal. Aortic root dimension is normal. Mitral valve is morphologically normal with trace of mitral regurgitation. Aortic valve was not visualized well, but Doppler studies indicate no stenosis or insufficiency. Tricuspid valve shows trace of tricuspid regurgitation with normal estimated pulmonary artery systolic pressure of 31. Pulmonary valve was not visualized. There is no pericardial effusion. IMPRESSION 1. Technically difficult study. 2. Normal LV systolic function with ejection fraction of 62%. 3. Trace of mitral regurgitation. 4. Trace of tricuspid regurgitation with normal estimated pulmonary artery systolic pressure of 31. - Imaging and Cardiology Chest x-ray Additional comments: Date of Exam: 12/21/16 Ordering Provider: Troy Martin DO Type of Exam(s): XR chest 2V Reason for Exam(s): pre-op LOCATION OF DICTATION: [facility] EXAM: XR chest 2V HISTORY: pre-op COMPARISON: November 25, 2011. FINDINGS: The heart size is normal. The mediastinal configuration is unremarkable. There are no consolidating opacities or pleural effusions. There is no evidence for a pneumothorax. The osseous structures are within normal limits. IMPRESSION: No acute cardiopulmonary abnormality is identified. . Assessment and Plan (1) Left breast mass Current visit: Yes Status: Acute Assessment and Plan: Assessment Vulvar abscess of the right labia majora - status post incision and drainage Leukocytosis Breast mass-left breast (new finding) Diabetes mellitus type 2-uncontrolled CHF Hyperlipidemia COPD Obstructive sleep apnea Obesity Generalized anxiety disorder Chronic low back pain History of recurrent DVT Plan Patient will be discharged today per Dr. Martin. Recommend that she follow-up with her primary care provider in regard to the breast mass for further evaluation including diagnostic mammogram and sonogram. In regard to her chronic health problems, she needs to resume her medications and follow-up with her primary care provider. She has been educated by multiple healthcare providers during her hospital stay on the importance of blood sugar control to prevent complications of diabetes including kidney failure, amputation, heart disease, blindness, etc. She has her meds at home and is willing to resume her insulin. Will have her resume at 25 U BID which is the dose she was previously on. She has follow up appointment scheduled for 12/28 at 11:[address] Mccarthy. Schedule OP f-u with Dr. Hwang for stress test. Sepsis Assessment - Evaluation Sepsis screening result: No Definite Risk Hospital Course Summary Disclaimer: The visit summary below is not to be considered part of the above Progress Note. Hospital Course: 12/21/16-Hospitalist consult Appreciate consultation from Dr. Martin for preoperative evaluation of this patient with multiple chronic problems and noncompliance. Patient will require further workup prior to proceeding with surgery. She's been off almost all of her meds for the last 7-8 months. Clindamycin 300 mg IV every 6 hours for vulvar infection. Continue [place] PRN and add when necessary morphine IV for pain. Consult Dr. Hwang for cardiac clearance. EKG showed normal sinus rhythm with evidence of possible past anterior infarct. Patient reports previous episode of chest pain which she thought could have been a heart attack for which she never sought treatment. 2-D echo has been ordered. Troponin is pending. Will place patient on telemetry. Lipids reviewed from PCPs office. Previously on Lipitor 20 mg daily. Can restart this on dismissal. Will monitor blood sugars and institute insulin sliding scale. Recommend restarting her metformin post-op. Will start DuoNeb treatments and incentive spirometry for her COPD. She has previously been prescribed albuterol and Dulera for her lung disease. Discussed finding of breast mass with Dr. Martin. This can be followed up outpatient through her PCP's (Dr. Mccarthy) office. This information was given to Dr. Mccarthy nurse. Lovenox and SCDs given her DVT history. Await clearance from cardiology prior to undergoing anesthesia. 12/22/16 Patient will be discharged today per Dr. Martin. Recommend that she follow-up with her primary care provider in regard to the breast mass for further evaluation including diagnostic mammogram and sonogram. In regard to her chronic health problems, she needs to resume her medications and follow-up with her primary care provider. She has been educated by multiple healthcare providers during her hospital stay on the importance of blood sugar control to prevent complications of diabetes including kidney failure, amputation, heart disease, blindness, etc. She has her meds at home and is willing to resume her insulin. Will have her resume at 25 U BID which is the dose she was previously on. Schedule f-u with Dr. Hwang for OP stress test. She has follow up appointment scheduled for 12/28 at 11:[address] Mccarthy. <Kareem Miranda - Last Filed: 12/22/16 16:37> Objective Vital signs: Temperature 98.5 F 12/22/16 10:45 Pulse Rate 99 12/22/16 14:15 Respiratory Rate 14 12/22/16 13:15 Blood Pressure 123/65 12/22/16 14:15 Pulse Oximetry 94 12/22/16 14:15 Height/Weight/BMI: Height 5 ft 3 in Weight 135.4 kg Body Mass Index 52.3 Results - Labs CBC & Chem 7: 12/21/16 14:01 12/21/16 14:47 Microbiology Results: Microbiology 12/22/16 09:18 Surgical Site Gram Stain - Final 12/22/16 09:18 Surgical Site Surgical Culture - Preliminary Culture Initiated - Results Pending - ABG Interpretation ABG results: 12/21/16 18:11 ABG pH 7.460 H ABG pCO2 40 ABG pO2 69 L ABG HCO3 28 H ABG Total CO2 29.6 H ABG O2 Saturation 95.0 ABG Base Excess 4.2 H Assessment and Plan (1) Left breast mass Current visit: Yes Status: Acute Assessment and Plan: Above pt was seen and examined by myself independently On PE General - Oriented x 3 does not appear to be in any distress. Pt is obese, and has Diabetes which is poorly controlled. Well hydrated Neck supple no JVD Chest distant heart and breath sounds Abd - obese Ext - No edema Plan May be D/C home. Needs to improve his diabetes control Needs to engage in a wt loss program. Will have an outpatient stress test with Cardiology soon. - Time spent with patient 25 - 35 minutes Hospital Course Summary Disclaimer: The visit summary below is not to be considered part of the above Progress Note.
[2016-12-22] MEDS: ENOXAPARIN 40 MG/0.4 ML INJECTION SQ SCH (12:01)
[2016-12-22] MEDS: HYDROCODONE/APAP 7.5 MG/325 MG TABLET PO PRN ×2 (12:02→15:57)
[2016-12-22 13:24] VITALS: RESP 14
--- NOTE | 2016-12-22 13:47 | Operative Note ---
DATE OF OPERATION 12/22/2016 PREOPERATIVE DIAGNOSIS Right labial abscess. POSTOPERATIVE DIAGNOSIS Right labial abscess. PROCEDURE Incision and drainage of right labial abscess. 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 BLOOD LOSS Minimal SPECIMEN Aerobic and anaerobic cultures seen to Microbiology. INDICATIONS FOR PROCEDURE This is a 56-year-old female who presented to the office on 12/21/2016 with significant right labial abscess. She was offered incision and drainage in the office versus the OR but due to the significant size and likelihood of exploration of abscess, my recommendations were for her to proceed to the operating room. She was admitted to the hospital with a consult to the hospitalist for preop eval and management of her chronic comorbidities which included previous history of DVT x2, congestive heart failure, chronic obstructive pulmonary disease, class II and poorly controlled diabetes mellitus. Risks, benefits and alternatives to the procedure were discussed with the patient and patient agreed to procedure. Questions were elicited and answered. PROCEDURE Patient was taken to the operating room where general endotracheal anesthesia was obtained without difficulty. She was then prepped and draped in the dorsal lithotomy position in the normal sterile fashion. The exterior of the abscess was examined. There was a small spot that had started to drain minimally and at this time that is where the 10 blade was used to make an incision approximately 3 cm in size. Copious amounts of purulent drainage was noted. A Joyce forceps was then used to explore the wound and break up any loculations that were found. After a significant exploration of the wound was performed with the Joyce, digitally a finger was used to explore the wound and no loculations were appreciated to remain. At this time, copious amounts of irrigation were used to irrigate the wound thoroughly. One-inch Iodoform gauze was packed into the incision. Bleeding was minimal at this time and decision was made to conclude the case. Francisca, sponge and needle counts were correct x2 and Poole catheter was to be removed in the OR and patient was to be taken to the recovery room in stable condition. CARLIE
--- NOTE | 2016-12-22 13:54 | Cardiology Progress Note ---
Subjective Principal diagnosis: CHF, Cardiac risk factors <Kiley Dinero 12/22/16 13: 56> Interval history: Teresa is seen in follow up for cardiac clearance for today's I &D of labial abscess. She states she is having less pain and pressure. She denies chest pain or dyspnea. <Kiley Dinero 12/22/16 13:56> Exam Vital signs: Temperature 98.5 F 12/22/16 10:45 Pulse Rate 99 12/22/16 14:15 Respiratory Rate 14 12/22/16 13:15 Blood Pressure 123/65 12/22/16 14:15 Pulse Oximetry 94 12/22/16 14:15 <Silvino Hwang - 12/29/16 08:07> Temperature 98.5 F 12/22/16 10:45 Pulse Rate 98 12/22/16 13:15 Respiratory Rate 14 12/22/16 13:15 Blood Pressure 132/64 12/22/16 13:15 Pulse Oximetry 91 12/22/16 13:15 <BarKiley Johnson 12/22/16 13:56> - Constitutional no acute distress, morbidly obese, cooperative <BarKiley 12/22/16 13: 56> - Routine HEENT Exam Head: Present: normocephalic <BarKiley gan Elizabeth 12/22/16 13:56> ENT: Present: mucous membranes moist <Bar,Kiley Johnson 12/22/16 13:56> - Routine Neck Exam Absent: JVD, carotid bruit <BarKiley gan Elizabeth 12/22/16 13:56> - Routine Chest/Breast/Axilla Exam Chest wall: Absent: tenderness <BarKiley gan Elizabeth 12/22/16 13:56> - Routine Respiratory Exam Present: rales (right basilar), diminished air movement. Absent: CTA bilaterally <BarKiley gan Elizabeth 12/22/16 13:56> - Routine Cardiovascular Exam Present: RRR, no murmur. Absent: JVD <Kiley Dinero Elizabeth 12/22/16 13:56> - Routine Abdominal Exam Present: soft, normoactive bowel sounds <Kiley Dinero Elizabeth 12/22/16 13:56> - Routine Extremities Exam Present: no edema <Kiley Dinero 12/22/16 13:56> - Routine Skin Exam Present: intact, dry, warm <Kiley Dinero 12/22/16 13:56> - Routine Neurological Exam Present: alert, oriented X3 <Kiley Dinero 12/22/16 13:56> - Routine Psychiatric Exam Present: normal affect, normal thought process <Kiley Dinero 12/22/16 13: 56> - Urinary Catheter Management 2-way Urethral Cath placed during this visit: no <Silvino Hwang 12/29/16 08:07> yes, but has since been removed by the nurse <Kiley Dinero 12/24/16 11:46> Removal date: 12/22/16 <BarKiley Johnson 12/22/16 13:56> Removal time: 09:30 <Kiley Dinero 12/22/16 13:56> Urethral Cath placed during this visit: no <Silvino Hwang 12/29/16 08:07> yes <Kiley Dinero 12/24/16 11:46> Insertion date: 12/21/16 <Kiley Dinero 12/22/16 13:56> Insertion time: 15:37 <Kiley Dinero 12/22/16 13:56> Progress Note-A&P - Time Spent With Patient Total time spent is greater than 50% in coordination of care (as documented) at patient's floor/unit and/or counseling patient: <Silvino Hwang 12/29/16 08:07> Total time spent is greater than 50% in coordination of care (as documented) at patient's floor/unit and/or counseling patient: <Kiley Dinero 12/22/16 13:56> less than 15 minutes <BarKiley Johnson 12/22/16 13:56> - Attestation Attestation Narrative: Recommendation After examining the patient I agree with the above assessment. I am involved in the formulation of the patient's plan of care. <Silvino Hwang 12/29/16 08:07> (1) Vulvar abscess Status: Acute (2) Mixed hyperlipidemia Status: Acute (3) COPD (chronic obstructive pulmonary disease) Status: Acute (4) Diabetes mellitus type 2, uncontrolled Status: Acute (5) Morbid obesity with BMI of 50.0-59.9, adult Status: Acute (6) Sleep apnea Status: Acute <Silvino Hwang - 12/29/16 08:07> (1) Vulvar abscess Status: Acute Assessment and plan: I&D today (2) Mixed hyperlipidemia Status: Acute (3) COPD (chronic obstructive pulmonary disease) Status: Acute (4) Diabetes mellitus type 2, uncontrolled Status: Acute (5) Morbid obesity with BMI of 50.0-59.9, adult Status: Acute (6) Sleep apnea Status: Acute <Kiley Dinero - 12/24/16 11:46> Sepsis Assessment - Evaluation Sepsis screening result: No Definite Risk <iKley Dinero - 12/22/16 13:56> Hospital Course Summary Disclaimer: The visit summary below is not to be considered part of the above Progress Note. <Silvino Hwang - 12/29/16 08:07> The visit summary below is not to be considered part of the above Progress Note. <Kiley Dinero - 12/22/16 13:56> Hospital Course: 12/21/16-Hospitalist consult Appreciate consultation from Dr. Martin for preoperative evaluation of this patient with multiple chronic problems and noncompliance. Patient will require further workup prior to proceeding with surgery. She's been off almost all of her meds for the last 7-8 months. Clindamycin 300 mg IV every 6 hours for vulvar infection. Continue [place] PRN and add when necessary morphine IV for pain. Consult Dr. Hwang for cardiac clearance. EKG showed normal sinus rhythm with evidence of possible past anterior infarct. Patient reports previous episode of chest pain which she thought could have been a heart attack for which she never sought treatment. 2-D echo has been ordered. Troponin is pending. Will place patient on telemetry. Lipids reviewed from PCPs office. Previously on Lipitor 20 mg daily. Can restart this on dismissal. Will monitor blood sugars and institute insulin sliding scale. Recommend restarting her metformin post-op. Will start DuoNeb treatments and incentive spirometry for her COPD. She has previously been prescribed albuterol and Dulera for her lung disease. Discussed finding of breast mass with Dr. Martin. This can be followed up outpatient through her PCP's (Dr. Mccarthy) office. This information was given to Dr. Mccarthy nurse. Lovenox and SCDs given her DVT history. Await clearance from cardiology prior to undergoing anesthesia. 12/21/16 Cardiology Surgical incision and drainage of abscess is a low risk procedure that the patient should proceed with as planned. Plan outpatient stress test for further evaluation of chest pain. Thank you for allowing us to participate in the care of this patient. <Kiley Dinero - 12/22/16 13:56>
--- NOTE | 2016-12-22 14:14 | Discharge Instructions ---
Discharge Plan - Med Rec/Dispo Referrals/Follow Up: Ayan Mccarthy MD [Family Provider] - (Appointment is scheduled for 11:00 on Wednesday, Dec 28.) [place] Instructions: Abscess (GEN) Additional Instructions: Restart insulin at breakfast and supper. Check blood sugars - fasting and 2 hours after meals - and take blood sugar log to follow up appointment with Dr. Mccarthy. Prescriptions: New Hydrocodone/APAP 7.5/325 [[place] 7.5/325] 1 tab PO Q4H PRN tablet PRN Reason: Pain Continue Solifenacin Succinate [Vesicare] 10 mg PO DAILY Benzocaine/Resorcin/Aloe/E,A,D [Vagisil Cream] 1 applic TOP PRN Ondansetron Odt [Zofran Po] 4 mg PO Q6HPRN PRN #20 tab PRN Reason: nausea/vomiting LORazepam [Lorazepam] 1 mg PO BID PRN #0 Hydrocodone/APAP 7.5/325 [[place] 7.5/325] 1 tab PO PRN PRN PRN Reason: Pain Clindamycin [Cleocin] 300 mg PO QID #28 cap Discharge Instructions/Outpatient Orders: Consulting Provider Discharge Instructions Location: Determined By Patient - Disposition 01 Discharged Home, Self-Care
[2016-12-22 14:34] VITALS: BP 123/65; PULSE 99; O2SAT 94
[2016-12-22] MEDS ORDERED: ALBUTEROL/IPRATROPIUM 2.5mg-0.5mg/3ml NEB AEROSOL SCH (15:00)
--- NOTE | 2016-12-22 15:12 | Discharge Summary ---
Discharge Information Date of admission: 12/21/16 11:22 Anticipated date of discharge: 12/22/16 Attending Physician: Troy Martin DO Primary care physician: Ayan Mccarthy MD Consults: 12/21/16 12:24 Physician Consult [CONS] Routine Consulting Provider: Kareem Miranda Reason For Exam: pre-operative eval Ordering Provider has Notified Shotblast Equipment Operator: Yes 12/21/16 12:28 Case Management Consult [CONS] Routine Reason For Exam: discharge planning 12/21/16 14:37 Physician Consult [CONS] Routine Consulting Provider: Silvino Hwang Reason For Exam: chf, cardiac risk factors Ordering Provider has Notified Shotblast Equipment Operator: No 12/22/16 Inpatient Diabetic Consult [CONS] Routine Diabetic Training: Self-management Support Detect Complications Monitoring Diabetes Nutritional Management 12/22/16 06:00 Consult to Anesthesiology [CONS] Routine Consulting Provider: ALTAGRACIA Feldman Reason For Exam: I & D of Right Labial Abcess 12/22/16 12:26 Dietary Consult [CONS] Routine Comment: Reason For Exam: A1C 11.7 - Discharge Diagnosis (1) Other abscess of vulva Status: Acute (2) COPD (chronic obstructive pulmonary disease) Status: Acute (3) Diabetes mellitus type 2, uncontrolled Status: Acute (4) Left breast mass Status: Acute (5) Mixed hyperlipidemia Status: Acute (6) Morbid obesity with BMI of 50.0-59.9, adult Status: Acute (7) Sleep apnea Status: Acute - Procedures Procedures: Incision and Drainage of vulvar abscess in OR 12/22/16 - Laboratory Labs: 12/21/16 14:01 12/21/16 14:47 - Microbiology Microbiology 12/22/16 09:18 Surgical Site Gram Stain - Final 12/22/16 09:18 Surgical Site Surgical Culture - Preliminary Culture Initiated - Results Pending - Radiology Radiology: Chest X-ray, EchoCardiogram History of Present Illness HPI: 12/22/16 15:09 Pt originally presented to ED with vulvar pain was noted to have cellulins and was started on Clindamycin and discharged home with f/u. The next day she presented for f/u and a significant vulvar abscess was noted. Plan of incision and drainage in OR was made secondary to size and patient was admitted for pre operative evaluation secondary to comorbidities. Hospital Course This is a general summary of the patient's hospital course. For more details refer to the complete medical record. Hospital course: 12/21/16-Hospitalist consult Appreciate consultation from Dr. Martni for preoperative evaluation of this patient with multiple chronic problems and noncompliance. Patient will require further workup prior to proceeding with surgery. She's been off almost all of her meds for the last 7-8 months. Clindamycin 300 mg IV every 6 hours for vulvar infection. Continue [place] PRN and add when necessary morphine IV for pain. Consult Dr. Hwang for cardiac clearance. EKG showed normal sinus rhythm with evidence of possible past anterior infarct. Patient reports previous episode of chest pain which she thought could have been a heart attack for which she never sought treatment. 2-D echo has been ordered. Troponin is pending. Will place patient on telemetry. Lipids reviewed from PCPs office. Previously on Lipitor 20 mg daily. Can restart this on dismissal. Will monitor blood sugars and institute insulin sliding scale. Recommend restarting her metformin post-op. Will start DuoNeb treatments and incentive spirometry for her COPD. She has previously been prescribed albuterol and Dulera for her lung disease. Discussed finding of breast mass with Dr. Martin. This can be followed up outpatient through her PCP's (Dr. Mccarthy) office. This information was given to Dr. Mccarthy nurse. Xin and SCDs given her DVT history. Await clearance from cardiology prior to undergoing anesthesia. 12/22/16 Patient will be discharged today per Dr. Martin. Recommend that she follow-up with her primary care provider in regard to the breast mass for further evaluation including diagnostic mammogram and sonogram. In regard to her chronic health problems, she needs to resume her medications and follow-up with her primary care provider. She has been educated by multiple healthcare providers during her hospital stay on the importance of blood sugar control to prevent complications of diabetes including kidney failure, amputation, heart disease, blindness, etc. She has her meds at home and is willing to resume her insulin. Will have her resume at 25 U BID which is the dose she was previously on. Schedule f-u with Dr. Hwang for OP stress test. She has follow up appointment scheduled for 12/28 at 11:[address] Mccarthy. Time spent with patient: less than 15 minutes DVT Prophylaxis: SCD's, Lovenox Discharge Plan - Med Rec/Dispo Referrals/Follow Up: Ayan Mccarthy MD [Family Provider] - (Appointment is scheduled for 11:00 on Wednesday, Dec 28.) [place] Instructions: Abscess (GEN) Additional Instructions: Restart insulin at breakfast and supper. Check blood sugars - fasting and 2 hours after meals - and take blood sugar log to follow up appointment with Dr. Mccarthy. Prescriptions: New Hydrocodone/APAP 7.5/325 [[place] 7.5/325] 1 tab PO Q4H PRN tablet PRN Reason: Pain Continue Solifenacin Succinate [Vesicare] 10 mg PO DAILY Benzocaine/Resorcin/Aloe/E,A,D [Vagisil Cream] 1 applic TOP PRN Ondansetron Odt [Zofran Po] 4 mg PO Q6HPRN PRN #20 tab PRN Reason: nausea/vomiting LORazepam [Lorazepam] 1 mg PO BID PRN #0 Hydrocodone/APAP 7.5/325 [[place] 7.5/325] 1 tab PO PRN PRN PRN Reason: Pain Clindamycin [Cleocin] 300 mg PO QID #28 cap Discharge Instructions/Outpatient Orders: Consulting Provider Discharge Instructions Location: Determined By Patient - Disposition 01 Discharged Home, Self-Care - Attestation Attestation Narrative: 12/22/16 15:14 Pt to have F/U with [facility] for evaluation and treatment with removal and repacking of Vulvar Abscess. Apt to be after 2 pm so daughter can attend. Daughter may repack daily until f/u visit in office next week if she feel comfortable. Pt needs F/U post operative apt next week with Dr. Troy Martin [facility]. Call office for apt.
[2016-12-23] MEDS ORDERED: SOLIFENACIN 5mg TABLET PO SCH (09:00)
== END 2016-12-22 16:45 | disposition home health service (06) ==
LOC: MED
PROVIDERS: ADMIT Obstetrics & Gynecology; ATTEND Obstetrics & Gynecology

== ENCOUNTER 2017-09-15 03:23 | Inpatient (IN) ==
[2017-09-15] MEDS ORDERED: ALBUTEROL/IPRATROPIUM 2.5mg-0.5mg/3ml NEB AEROSOL ONE ×4 (03:38→05:21)
[2017-09-15] MEDS ORDERED: METHYLPREDNISOLONE SOD SUCC 125mg/2ml INJECTION IVP ONE (03:39)
--- OUTSIDE RECORDS SUMMARY | 2017-09-15 03:55 | External Medical Summary | Continuity of Care Document ---
:1960 Author Organization [facility] Address [address] [place], [place] [id number] Phone Care Team Providers Name Role Phone Ayan Mccarthy MD Unavailable Unavailable Allergies, Adverse Reactions, Alerts Substance Reaction Severity Status Penicillins Unknown Active Medications Medication Instructions Dosage Effective Dates Status Comments (start - stop) Vesicare 10 mg take 1 tablet by 10 MG - Active tablet oral route every day [place]iska 7.5 mg-325 mg take 1 tablet by Not Available - Active tablet oral route every 6 hours as needed for pain clindamycin 300 mg take 1 capsule by 300 MG - Active capsule oral route 3 times every day for 5 days Problems Condition Effective Dates (start - stop) Clinical Status Urge incontinence Abscess of vulva Encntr for f/u exam aft trtmt for cond ot [facility] neoplm Abscess of vulva Abscess of vulva Arthritis Multiple Locations Active Chronic Obstructive Pulmonary Disease Active Type II Diabetes Active Procedures Procedure Date Postop followup visit Results Test Name Date and Time Measure Units Reference Range Abnormal Flag Comments Unknown Advance Directives Directive Yes / No Effective Date File Name Unknown Encounters Encounter Practice Location Reason(s) Diagnoses Date Provider Care Team Description For Visit [facility] post-operati Urge Sep-2 [place] Referring In [facility] ve incontinenceAbsce [address]. Provider: Genny FRIAS, examination ss of vulvaEncntr [address] (chief for f/u exam aft Medical [place] [address], [address], complaint) trtmt for cond [address] [place], [facility] [place], neoplm [address] [id number], [address] [facility], [address], tel: [place], [address], [place], [address]. [place]. tel: tel: [phone] [facility] Abscess of vulva Sep-1 [place] Referring In Womens [address]. Provider: Genny FRIAS, [address] [facility] Medical [place] [address], [address], Medical [place], [address] [id number], [address] [place], [address], tel: [place], [address], [place], [address]. [place]. tel: tel: [phone] [facility] Abscess of vulva Sep-1 [place] Referring In Womens [address]. Provider: Genny FRIAS, 7 700 [facility] Medical [address], [address], [address] [place], [facility], Medical [place], [address] [id number], [address], [address], [place] [place], tel: [place], [address]. 114, tel: [place]. [phone] tel: [phone] [facility] Nov- Hild In Womens [address] [place], [address] [facility] [place], [address] [place], [place], [id number], , [place]. [place] tel: tel: [phone] Family History Family Member Diagnosis Age At Onset Sister Lung Disease Maternal Grandfather Stroke Father Diabetes mellitus Mother Lung Disease No family history of Epilepsy Father Thyroid Disorder Father Cardiovascular Disease Paternal Grandfather Stomach Cancer Paternal Grandfather Thyroid Disorder Daughter Ovarian Cancer No family history of Hypertension Father Cancer, colon Father Renal disease Father Lung Disease Maternal Grandmother Stroke No family history of Osteoporosis Mother Cancer, breast Immunizations Vaccine Date Status Comments Unknown Payers Payer name Insurance type Covered alliance party ID Authorization(s) Medicare MB [id number] [employer] [place] [employer] - Medicaid [place] [id number] BCBS Out Of State [id number] Social History Type Description Quantity Date Captured Alcohol Use Details No Caffeine Use Details Tobacco Use Status Heavy cigarette smoker (20-39 cigs/day) Smoking Status Current every day smoker Vital Signs Date / Height Weight BMI Pulse Blood Temperature Respiratory Body Head BMI Time: Rate Pressure Rate Surface Circumference percentile Area 289.80 79 134/73 97.90 lbs /min mm[Hg] 10:22 AM Chief Complaint And Reason For Visit Most recent encounter only, dated '01/04/2017 10:15'. post-operative examination (chief complaint). Description: She had a Incision And Drainage of Vulvar/Perineal Abscess on 12/22/2016. She is 1 Week 6 Days post-op. Preoperative indication for the surgery was abscess of right genital labia. Pain level is none. She describes her bleeding amount as none. Patient denies chills, constipation, diarrhea, fever, incision drainage and incision pain. Reason For Referral Reason For Referral Unknown Plan Of Care Date Type Action Status Goal Tobacco cessation counseling completed Goal Lifestyle education regarding diet completed Goal Lifestyle education regarding diet completed Goal Tobacco cessation counseling completed Appointment Teresa Luna BOOKED Future Order: Lab Order LIQUID BASE CX PAP W/REFLEX HI HPV IF Ordered ASCUS, Collected on: Date Type Problem Goal Intervention Status Start Date Unknown. History Of Present Illness Encounter Date Complaint History Of Present Illness post-operative examination She had a Incision And Drainage of Vulvar/Perineal Abscess on 12/22/2016. She is 1 Week 6 Days post-op. Preoperative indication for the surgery was abscess of right genital labia. Pain level is none. She describes her bleeding amount as none. Patient denies chills, constipation, diarrhea, fever, incision drainage and incision pain. Functional Status Encounter Date Functional Assessment Cognitive Assessment Unknown Medications Administered Medication Instructions Dosage Effective Dates (start - stop) Status Comments Drug Treatment Unknown Instructions Date Instruction Additional Information Giving encouragement to exercise Related to Body mass index 50.0- 59.9 Lifestyle education regarding diet Related to Body mass index 50.0-59.9 Giving encouragement to exercise Related to Body mass index 50.0- 59.9 Lifestyle education regarding diet Related to Body mass index 50.0-59.9
--- OUTSIDE RECORDS SUMMARY | 2017-09-15 03:55 | External Medical Summary | Referral Summary ---
:1960 Author Organization [facility] [address] [place] [id number] Care Team Providers Name Role Phone Ayan Mccarthy Primary Care Physician Encounter VC Date(s): 02/02/17 - 02/02/17 [facility] [place] [address] [place] [phone] [place] Discharge Diagnosis: Diabetes mellitus, type 2 Discharge Diagnosis: Asthma without status asthmaticus (disorder) Discharge Disposition: 01-Home or Self Care Attending Physician: Ayan Mccarthy MD Admitting Physician: Ayan Mccarthy MD Vital Signs Most recent to oldest [Reference Range]: 1 Temperature Tympanic [36.6-38.1 degC] 36.5 degC *LOW* (02/02/17 8:38 AM) Peripheral Pulse Rate [60-100 bpm] 88 bpm (02/02/17 8:38 AM) Respiratory Rate [14-20 br/min] 18 br/min (02/02/17 8:38 AM) Blood Pressure [90-140/60-90 mmHg] 116/66 mmHg (02/02/17 8:38 AM) SpO2 98 % (02/02/17 8:38 AM) Problem List Condition Effective Dates Status Health Status Informant Acute otitis media(Confirmed) Active Allergic rhinitis Active (disorder)(Confirmed) Blood clot lungs/legs(Confirmed) Active Candidiasis of mouth(Confirmed) Active Chronic otitis media with Active effusion(Confirmed) COPD (chronic obstructive pulmonary Active disease)(Confirmed) Conductive hearing loss Active (disorder)(Confirmed) Depression(Confirmed) Active Deviated nasal septum(Confirmed) Active Diabetes(Confirmed) Active epigastr right upper quadrant Active abdominal painic(Confirmed) Lesion of external ear Active canal(Confirmed) Gallbladder disease(Confirmed) Active Other diseases of nasal cavity and Active sinuses(Confirmed) Sleep disturbance, Active unspecified(Confirmed) Ear infection(Confirmed) Active fall w/ left leg and right knee Active pain(Confirmed) CHARLES(Confirmed) Active Asthma(Confirmed) Active Hyperlipidemia(Confirmed) Active Asthma without status asthmaticus Active (disorder)(Confirmed) Obesity (disorder)(Confirmed) Active Acute thrombosis of superficial veins Active of upper extremity(Confirmed) Tinnitus(Confirmed) Active Tobacco user(Confirmed) Active patient Diabetes mellitus, type 2(Confirmed) Active Allergies, Adverse Reactions, Alerts Substance Reaction Severity Status penicillin convulsions Active Medications albuterol CFC free 90 mcg/inh inhalation aerosol 2 puffs, Inhalation, QID, Respiratory Distress, # 1 Each, 3 Refill(s), Pharmacy : [facility] Start Date: 06/09/16 Status: OrderedBreo Ellipta 200 mcg-25 mcg/inh inhalation powder 1 puffs, Inhalation, Daily, dx j44.9, # 1 Each, 6 Refill(s), Pharmacy: [facility] Start Date: 12/28/16 Status: Orderedcitalopram 20 mg oral tablet 20 mg 1 tabs, Oral, Daily, # 30 tabs, 6 Refill(s), Pharmacy: [facility], 1 tabs OralDaily Start Date: 12/28/16 Status: OrderedGlucometer (DME) DME Item True Test Gllucometer DX E11.65 Test Daily, fasting or 2 hours after meals., See Instructions, # 1 Each, 0 Refill(s), Pharmacy: [facility], True Test Gllucometer DX E11.65 Test Daily, fasting or 2 hours after meals., Supply,... Start Date: 12/28/16 Status: OrderedGlucometer strips (DME) DME Item Trutest test strips Test 1 time daily fasting or 2 hours after meals Dx E1.65, See Instructions, # 100 Each, 5 Refill(s), Pharmacy: [facility], Trutest test strips Test 1 time daily fasting or 2 hours after meals Dx E1.6... Start Date: 01/13/17 Status: OrderedInsulin pen needles 31G, 6mm Insulin pen needles 31G, 6mm, See Instructions, Use to administer insulin twice daily as instructed;Dx E11.65, # 200 Each, 3 Refill(s), Pharmacy: [facility] [id number], Use to administer insulin twice daily as instructed; Dx E11.65 Start Date: 12/28/16 Status: OrderedLipitor 20 mg oral tablet 20 mg 1 tabs, Oral, Bedtime (once a day), # 30 tabs, 3 Refill(s), [id number], 1 tabs Oral Bedtime (once a day) Start Date: 12/28/16 Status: OrderedLORazepam 1 mg oral tablet 1 mg 1 tabs, Oral, BID, as needed for anxiety, [facility] # 30 tabs, 0 Refill(s ) Start Date: 01/12/17 Status: OrderedNorco 7.5 mg-325 mg oral tablet See Instructions, as needed for pain, 1-2 tabs Oral q6hr MUST LAST 14 DAYS, # 84 tabs, 0 Refill(s) Start Date: 02/01/17 Status: OrderedNovoLOG Mix 70/30 FlexPen subcutaneous suspension 15 unitis, SubCutaneous, BID, dx E11.65, # 25 mL, 3 Refill(s), Pharmacy: [facility] [id number] Start Date: 12/28/16 Status: OrderedpredniSONE 10 mg oral tablet See Instructions, Take 5 tabs for 2 days, then 4 for 2 days, then 3 for 2 days then 2 for 2 days, then 1 for 2 days, # 30 Each, 0 Refill(s), Pharmacy: [facility] [id number], Take 5 tabs for 2 days, then 4 for 2 days, then 3 for 2 days then 2 for... Start Date: 11/12/16 Status: Orderedsolifenacin 10 mg oral tablet 10 mg 1 tabs, Oral, Daily, # 90 tabs, 3 Refill(s), Pharmacy: [facility], 1 tabs Oral Daily,x90 days Start Date: 02/03/16 Stop Date: 01/28/17 Status: Ordered Immunizations Given and Recorded Vaccine Date Status Refusal Reason tetanus/diphth/pertuss (Tdap) adult/adol 01/30/16 Given influenza virus vaccine, inactivated 01/30/16 Given pneumococcal 23-polyvalent vaccine 08/05/15 Given Procedures Procedure Date Related Diagnosis Body Site Eye exam, routine1 12/25/15 Diabetic foot examination 08/05/15 Biopsies from antrum for ZEYNEP assay 12/15/12 Cecal polypectomy via cold biopsy technique 12/15/12 Colonoscopy2 12/15/12 Esophagogastroduodenoscopy3 12/15/12 Random biopsies 12/15/12 sequential balloon dilatation 54 Croatian 12/15/12 Mammogram 05/05/12 Appendectomy Bilateral tubal ligation Gallbladder [facility]onsillect[facility], tubular adenoma negative for [id number] for purcell's, staying on PPI Social History Social History Type Response Smoking Status Current every day smoker; Type: Cigarettes; Tobacco use per day : More than 1 pack entered on: 11/08/14 Assessment and Plan Extracted from: Title: Office Visit Note Author: Ayan Mccarthy MD Date: 02/02/17 1.Diabetes mellitus, type 2 I congratulated on the hard work she's doing toimprove her blood sugars. I suggested that we increase her morning insulin to 20 units and keep her evening dose at 15. If she starts running low she will let us now. Follow-up in 2 months with fasting lab prior to that appointment. 2.Asthma without status asthmaticus (disorder) This is chronic and relatively stable no change in current treatment.
--- OUTSIDE RECORDS SUMMARY | 2017-09-15 03:55 | External Medical Summary | Continuity of Care Document ---
:1960 Author Organization [facility] Address [address] [place], [place] [id number] Phone Care Team Providers Name Role Phone Ayan Mccarthy MD Unavailable Unavailable Allergies, Adverse Reactions, Alerts Substance Reaction Severity Status Penicillins Unknown Active Medications Medication Instructions Dosage Effective Dates Status Comments (start - stop) Vesicare 10 mg take 1 tablet by 10 MG - Active tablet oral route every day [place] 7.5 mg-325 take 1 tablet by Not Available - Active mg tablet oral route every 6 hours as needed for pain clindamycin 300 take 1 capsule by 300 MG - Active mg capsule oral route 3 times every day for 5 days ondansetron HCl 4 take 1 tablet by 4 MG - No Longer mg tablet oral route every Active 4 hours for 2 days Vesicare 10 mg take 1 tablet by 10 MG - No Longer tablet oral route every Active day Problems Condition Effective Dates (start - stop) Clinical Status Abscess of vulva Urge incontinence Abscess of vulva Encntr for f/u exam aft trtmt for cond oth than malig neoplm Abscess of vulva Arthritis Multiple Locations Active Chronic Obstructive Pulmonary Disease Active Type II Diabetes Active Procedures Procedure Date Office/outpatient visit[place] [facility] [place] Test Name Date and Time Measure Units Reference Range Abnormal Flag Comments Unknown Advance Directives Directive Yes / No Effective Date File Name Unknown Encounters Encounter Practice Location Reason(s) Diagnoses Date Provider Care Team Description For Visit Members Albin Neal Sep-2 [place] Referring In [facility] incontinenceAbscess 5-[address] [place]. Provider: Health PA, of vulvaEncntr for [address] [place] [address] f/u exam aft trtmt Medical [place] [address], [address], for cond oth than Center [address] [place], [facility] [address], Medical [place], [address] [id number], [address], [address] [place], [address], tel:+ [place]OTT, [address], [place], [address]. [place]. tel: tel: [phone] [facility] [place] Abscess of vulva Sep-1 [place] Referring In Womens 2-[address] [place]. Provider: Genny FRIAS, [address] [place] [address] Medical [place] [address], [address], [address] [place], [facility], Medical [place], [address] [id number], [address], [address] [place], [address], tel: [place], [address], [place], [address]. [place]. tel: tel: [phone] Office/outpa [facility] [place] vaginal Abscess of vulva Sep-1 [place] Referring tient In Womens burning - [place]. Provider: visit,stuart, Genny FRIAS, (chief 7 700 [facility] PO [address] complaint) Medical [address], Center [address], [address] [place], [facility], Medical [place], [address] [id number], [address], DrBobby, [place], tel: [place], [place], . 114, tel: [place]. [phone] tel: [phone] [facility] Nov- Hild In Womens 2-[address] [place]. [facility], [address], [facility], [place], [place], [id number] , , [place]. [place] tel: tel: [phone] Family History Family Member Diagnosis Age At [...] Unknown Payers Payer name Insurance type Covered republican ID Authorization(s) Medicare MB [id number] [employer] [place] [employer] - Medicaid [place] [id number] [facility] Out Of State [id number] Social History Type Description Quantity Date Captured Alcohol Use Details No Caffeine Use Details Tobacco Use Status Heavy cigarette smoker (20-39 cigs/day) Smoking Status Current every day smoker Smoking Tobacco Use Cigarette: No Details Available Cigarette: 1 Packs per day Details Vital Signs Date / Height Weight BMI Pulse Blood Temperature Respiratory Body Head BMI Time: Rate Pressure Rate Surface Circumference percentile Area 62.75 293.40 52.3 94 135/ in lbs 9 /min mm[Hg] 9:55 kg/m AM eter (2) Chief Complaint And Reason For Visit Unknown Chief Complaint And Reason For Visit Reason For Referral Reason For Referral Unknown [...] Encounter Date Complaint History Of Present Illness vaginal burning Her symptoms began 1 week ago. Severity level is moderate-severe. It occurs continuously. Her symptoms are localized to the vulvar. The problem is worse. Relieving factors include warm soaks. She is also experiencing vaginal burning and vaginal itching. She denies vaginal bleeding, dyspareunia, parasites, diarrhea, vulvar dystrophy, vulvodynia and sexual activity. Pt presented to ED with History of vaginal Vulvar itching and pain Right side. She had used vagisil for yeast with out resoloution. Exam in Ed showed swelling and eythema without Fluctuant abcess/Cyst Functional Status Encounter Date Functional Assessment Cognitive [...]
--- OUTSIDE RECORDS SUMMARY | 2017-09-15 03:55 | External Medical Summary | Continuity of Care Document ---
:1960 Author Organization [facility] Address [address] [place], [place] [id number] Phone Care Team Providers Name Role Phone Ayan Mccarthy MD Unavailable Unavailable Allergies, Adverse Reactions, Alerts Substance Reaction Severity Status Penicillins Unknown Active Medications Medication Instructions Dosage Effective Dates Status Comments (start - stop) Vesicare 10 mg take 1 tablet by 10 MG - Active tablet oral route every day [place] 7.5 mg-325 mg take 1 tablet by Not Available - Active tablet oral route every 6 hours as needed for pain clindamycin 300 mg take 1 capsule by 300 MG - Active capsule oral route 3 times every day for 5 days Problems Condition Effective Dates (start - stop) Clinical Status Abscess of vulva Abscess of vulva Urge incontinence Abscess of vulva Encntr for f/u exam aft trtmt for cond oth than malig neoplm Arthritis Multiple Locations Active Chronic Obstructive Pulmonary Disease Active Type II Diabetes Active Procedures Procedure Date Incision And Drainage of Vulvar/Perineal Abscess Results Test Name Date and Time Measure Units Reference Range Abnormal Flag Comments Unknown Advance Directives Directive Yes / No Effective Date File Name Unknown Encounters Encounter Practice Location Reason(s) Diagnoses Date Provider Care Team Description For Visit Members Albin Neal Sep-2 [place] Referring In [facility] incontinenceAbscess 5-[address] [place]. Provider: Genny FRIAS, of vulvaEncntr for [address] [place] [address] f/u exam aft trtmt Medical [place], 1522, for cond oth than Center [address] [place], yazan neoplm [facility], [facility] Center [id number], [address], Drive [facility] 120, tel: [place] SCOTT, [address], [place], [address]. [place]. tel: tel: [phone] [facility] [place] Abscess of vulva Sep-1 [place] Referring In Womens 2-[address] [place]. Provider: Genny FRIAS, 7 700 [facility] Medical [place], [address], [address] [place], [facility], Medical [place], [address] [id number], [address], [address] [place], [address], tel: [place], [address], [place], [address]. [place]. tel: tel: [phone] [facility] [place] Abscess of vulva Sep-1 [place] Referring In Womens -201 [place]. Provider: Genny FRIAS, 7 700 [facility] Medical [address], [address], [address] [place], [facility], [facility], [address] [id number], [address], DrBobby, [place], tel: [place], [address]. 114, tel: [place]. [phone] tel: [phone] [facility] Nov- Hild In Womens 2-[address] [place]. Health [place], [address] [place], [address], [place], [place], [place], [id number], , [place]. [place] tel: tel: [phone] Family History Family Member Diagnosis Age At [...] Covered alliance party ID Authorization(s) Medicare MB [id number] [employer] [place] [employer] - Medicaid [place] [id number] [facility] Out Of State [id number] Social History Type Description Quantity Date Captured Unknown Vital Signs Date / Height Weight BMI Pulse Blood Temperature Respiratory Body Head BMI Time: Rate Pressure Rate Surface Circumference percentile Area Unknown Chief Complaint And Reason For Visit Unknown [...] Encounter Date Complaint History Of Present Illness This patient has no known history of present illness Functional Status Encounter Date Functional Assessment Cognitive [...]
--- NOTE | 2017-09-15 04:02 | Emergency Department Report ---
SOB HPI - General Chief Complaint: Shortness of Breath/Dyspnea Stated Complaint: trouble breathing Time Seen by Provider: 09/15/17 03:38 Source: patient Mode of arrival: ambulatory Limitations: no limitations - History of Present Illness Patient has had 4 days of worsening cough with difficulty breathing. Initially she felt like she had a cold, but now the symptoms have progressively worsened to the point that she is having severe shortness of air tonight. Patient uses 3 inhalers at home, and states that her rescue inhaler is simply not working now. Patient is a heavy smoker, has a history of COPD, CHF, and morbid obesity. - Related Data Home Medications Medication Instructions Recorded Confirmed Unable to Obtain Med List [Unknown 09/15/17 09/15/17 Meds] Allergies Allergy/AdvReac Type Severity Reaction Status Date / Time Penicillins Allergy Severe SEIZURE Verified 09/15/17 03:34 Review of Systems All systems: reviewed and negative except as stated PFS Patient Stated Medical History Cerebrovascular Accident Yes: 10 years ago Congestive Heart Failure Yes Asthma Yes Chronic Obstructive Pulmonary Yes Disease (COPD) Sleep Apnea Yes: Does not use CPAP Diabetes Mellitus Type 1 Yes: Uncontrolled/ patient took herself off insulin 1 year ago A1C 11.3 Diabetes Mellitus Type 2 Yes Hx Renal Disease No Hx Urinary Tract Infection Yes Osteoarthritis Yes: legs Gonorrhea Yes Anesthesia Reactions Yes: doesn't wake up Other Reproductive Yes: labial infection Surgical History: Myringotomy. Tubal ligation. Appendectomy. Balloon dilation of esophagus (12/15/12). Colonoscopy with polypectomy (12/15/12). Cholecystectomy. Tonsillectomy - Social History Smoking status: Current every day smoker (1 pack per day) Packs-years: 40 second hand exposure: No Substance use type: does not use Alcohol intake frequency: does not drink Housing: house Household members: spouse, children Current occupational status: disabled Does patient use chewing tobacco?: No Current residence: Apartment/Private Home Physical Exam - Limitations Limitations: no limitations - General General appearance: alert, in distress (respiratory), other (patient has very strong odor of tobacco smoke) - Normal Exams: Head:: Normocephalic without trauma Eyes:: Pupils are PERRLA w/ EOMI, No scleral icterus, irritation, or foreign bodies noted ENMT:: No facial trauma, nasal exudates, pharyngeal erythema, or exudates are noted Neck:: Full range of motion, without adenopathy, JVD, bruits or thyromegaly Cardiovascular:: Regular rate and rhythm, without murmur or gallop, Pulses 2+ all extremities, capillary refill, <2 seconds all extremities Abdomen:: Bowel sounds positive, soft, non-tender, non-distended, no hepatosplenomegaly, masses or bruits noted Lymphatic:: No lymphadenopathy, or lymphedema noted Musculoskeletal:: No tenderness, or deformity noted, good range of motion, all extremities Integumentary:: No rashes, hives, or bruising noted, hair and nails, without abnormality Neurological:: Patient is alert, and oriented, cranial nerves, motor/sensory/ cerebellar, exams w/o gross deficits, to observation Psychiatric:: Patient exhibits, appropriate attention, emotion and affect - Chest Chest inspection: Present: normal inspection, symmetric chest wall rise. Absent : tenderness - Respiratory Respiratory exam: Present: respiratory distress, wheezes, accessory muscle use, prolonged expiratory phase. Absent: normal lung sounds bilaterally (course type wheezes bilaterally), stridor Shortness of Breath/Dyspnea - [facility] Narrative Medical decision making narrative: Patient is given 2 DuoNeb mldc-fl-omte, with Solu-Medrol 125 mg IV CBC - n CMP - n ProBNP - mild elevation at 790 CXR - normal Lactate - normal Patient improving, but still having tight wheezes with poor air movement given 2 additional DuoNeb was - After total of 6 DuoNeb's patient is still having tight breathing with extended expiratory phase, but is not using accessory muscles, and is able to relax. Patient is given the choice of hospitalization this point, but she prefers to go home if possible, and asked that 2 days she'll do nebs be given to see if she can breakthrough. After 8 treatments total, patient is still having difficulty breathing with tight wheezes and extended expiratory phase. Patient is maintaining her O2 saturations at 91 and 92%, but admits that she is not back to her baseline and still feels tight in her chest. Case is discussed with Dr. Guerrero Saenz who will admit the patient inpatient for respiratory distress/COPD exacerbation. - Lab Data Result diagrams: 09/15/17 03:46 09/15/17 03:46 Lab Results 09/15/17 09/15/17 Range/Units 03:46 03:46 WBC 9.8 (4.5-11.0) T/MM3 RBC 4.51 (4.00-5.20) M/MM3 Hgb 12.7 (12-16) GM/DL Hct 38.1 (36-46) % MCV 84.5 (80-100) UM3 MCH 28.2 (26-34) UUG MCHC 33.3 (31-37) GM/DL RDW Std Deviation 43.1 (36.9-50.2) FL Plt Count 253 (130-400) T/MM3 MPV 9.3 L (9.4-12.4) UM3 Immature Gran % (Auto) 0.4 (0.0-0.5) % Neut % (Auto) 67.6 H (33-66) % Lymph % (Auto) 23.6 (23-45) % [place] % (Auto) 6.8 (0-9.0) % Eos % (Auto) 1.4 (0-4) % Baso % (Auto) 0.2 (0-2) % Neut # (Auto) 6.6 (1.8-7.7) T/MM3 Lymph # (Auto) 2.3 (1-4.8) T/MM3 [place] # (Auto) 0.7 (0-0.8) T/MM3 Eos # (Auto) 0.1 (0-0.5) T/MM3 Baso # (Auto) 0.0 (0-0.2) T/MM3 Abs Immat Gran (auto) 0.04 H (0.00-0.03) T/MM3 Plasma Lactate 1.6 (0.6-2.2) MMOL/L Disposition Clinical Impression: Respiratory distress, COPD exacerbation Disposition: 02 To [facility] Acute Care Condition: Stable Prescriptions: No Action Unable to Obtain Med List [Unknown Meds] 0 #0 [facility] [place] Referrals: Ayan Mccarthy MD [Primary Care Provider] - - Seen By: physician
[2017-09-15] MEDS: SALINE FLUSH 10ml SYRINGE IVF PRN ×2 (04:16→15:19)
[2017-09-15] MEDS ORDERED: HYDROCODONE/APAP 7.5 MG/325 MG TABLET PO ONE (05:35)
[2017-09-15] MEDS ORDERED: ALBUTEROL 2.5mg/3ml (0.083%) NEB AEROSOL PRN (05:56)
[2017-09-15] MEDS ORDERED: ACETAMINOPHEN 325 MG TABLET PO PRN (05:56)
[2017-09-15] MEDS ORDERED: MORPHINE SULFATE 2mg INJECTION IVP PRN (05:56)
[2017-09-15] MEDS ORDERED: DEXTROSE 50% SYRINGE 50ml (1 AMP) IVP PRN (06:04)
--- NOTE | 2017-09-15 06:08 | History & Physical Report ---
History of Present Illness Date: 09/15/17 Chief complaint: short of breath HPI: This is a 57 y/o patient with hx of COPD and CHF (type unknown). Patient with 4 days of increased dyspnea. The patient presents to the ED and CXR no evidence of infiltrate. no failure. Labs are reassuring but patient is very tight. duoneb, solumedrol and mulitple breathing treatments. At this time improved. Patient no longer is in need of consideration for bipap. The patient describes no headache, low fever with chills, no sore throat, no neck pain. did have pleuritic chest pain, no abdomen pain, no nausea or vomiting, no focal neuro issues. At this time she initially wanted to go home but after further discussions with eD provider will stay and we will admit for further tx. Apparently does not have access to nebulizer machine at home. Review of Systems All systems PM: 10-point ROS was reviewed, no additional remarkable complaints except Past Medical History Medical History Updates: copd not oxygen or steroid dependent, DM2, CHF, tobacco abuse, morbid obesity Surgical History: Myringotomy. Tubal ligation. Appendectomy. Balloon dilation of esophagus (12/15/12). Colonoscopy with polypectomy (12/15/12). Cholecystectomy. Tonsillectomy Family History Updates: non contributory Family History: As Above - Social History Smoking status: Current every day smoker (1 pack per day) Substance use type: does not use Alcohol intake frequency: does not drink Housing: house Household members: spouse Current occupational status: retired Current occupational exposures/hazards: No Does patient use chewing tobacco?: No Current residence: Apartment/Private Home Medications Home Medications Medication Instructions Recorded Confirmed Type Unable to Obtain Med List [Unknown 09/15/17 09/15/17 History Meds] Allergies Allergy/AdvReac Type Severity Reaction Status Date / Time Penicillins Allergy Severe SEIZURE Verified 09/15/17 03:34 Exam Vital Signs: Temperature 98.2 F 09/15/17 03:27 Pulse Rate 101 H 09/15/17 05:41 Respiratory Rate 28 H 09/15/17 05:41 Blood Pressure 122/55 09/15/17 05:41 Pulse Oximetry 98 09/15/17 05:41 Height/Weight/BMI: Height 1.6 m Weight 302 kg - Constitutional Present: moderate distress - Routine HEENT Exam Head: Present: normocephalic, atraumatic Eye: Present: EOMI, PERRL ENT: Present: mucous membranes dry - Routine Neck Exam Present: supple, full ROM - Routine Respiratory Exam Comments: very diminished with end exp wheezes posteriorly bilaterally - Routine Cardiovascular Exam Present: RRR, no murmur - Routine Abdominal Exam Present: soft, normoactive bowel sounds, non distended, non tender - Routine Extremities Exam Present: non tender, full ROM - Routine Back/Spine/Pelvis Exam Back/Spine: Present: full ROM - Routine Skin Exam Present: intact, dry - Routine Neurological Exam Present: alert, oriented X3, normal reflexes, moving all extremities, normal tone, vision grossly intact, hearing grossly intact, normal speech - Routine Psychiatric Exam Present: normal affect, normal thought process Results - Labs CBC & Chem 7: 09/15/17 03:46 09/15/17 03:46 Labs: reviewed and will be discussed below CXR without acute process. Assessment and Plan (1) COPD exacerbation Current visit: Yes Status: Acute (2) Diabetes mellitus type 2, uncontrolled Current visit: No Status: Acute (3) Mixed hyperlipidemia Current visit: No Status: Acute (4) Morbid obesity with BMI of 50.0-59.9, adult Current visit: No Status: Acute Assessment and Plan: 1. COPD exacerbation acute POA: solumedrol, duoneb, albuterol, adjust steroids rapidly as she is DM2 2 . Bronchitis acute POA: oral levaquin 3. DM2 chronic POA: correctional plan with steroids will worsen 4. hx of CHF chronic POA: need more data. no med rec available yet. no fluids. 5. morbid obeisty chronic POA; BMI 117. plays a role in overall clinical status 6. tobacco addiction chronic POA: cousneled to stop DVT Prophylaxis: SCD's, Lovenox Resuscitation Status: Full Code - Time spent with patient Time with patient PN: 30 minutes - Physician Narrative Narrative: Date: 09/15/17 Time: 604 Hospital Course Summary Disclaimer: The visit summary below is not to be considered part of the above Progress Note.
[2017-09-15] MEDS ORDERED: LEVOFLOXACIN 500 MG TABLET PO SCH (06:30)
[2017-09-15] MEDS: INSULIN ASPART 100unit/ml INJECTION SQ PRN ×3 (06:36→21:03)
[2017-09-15 06:43] VITALS: BMI 53.6
--- NOTE | 2017-09-15 07:50 | XRay Report ---
INDICATION: cough, dyspnea PROCEDURE: CHEST 2-VIEWS UPRIGHT (PA & LAT) Encounter: Initial COMPARISON: December 21, 2016 FINDINGS: Mild interstitial prominence without lobar consolidation. No pleural effusion or pneumothorax. The heart size, mediastinal contours and pulmonary vascularity are within normal limits. There is no significant skeletal abnormality. IMPRESSION: Mild interstitial prominence could be due to bronchitis/atypical pneumonia. .
[2017-09-15] MEDS: ALBUTEROL/IPRATROPIUM 2.5mg-0.5mg/3ml NEB AEROSOL PRN ×2 (08:00→11:00)
[2017-09-15] MEDS: NICOTINE 14 MG PATCH TD SCH (08:31)
[2017-09-15] MEDS: ENOXAPARIN 40 MG/0.4 ML INJECTION SQ SCH (08:32)
[2017-09-15] MEDS: METHYLPREDNISOLONE SOD SUCC 125mg/2ml INJECTION IVP SCH ×3 (08:34→21:40)
[2017-09-15] MEDS ORDERED: NS 1,000 ML IV ONE (09:22)
[2017-09-15] MEDS ORDERED: INSULIN ASPART 100unit/ml INJECTION SQ ONE (10:27)
[2017-09-15] MEDS ORDERED: LORazepam 1 MG TABLET PO PRN (13:54)
[2017-09-15] MEDS ORDERED: [UNRECOGNIZED DRUG - OTHER] INH SCH (14:00)
--- NOTE | 2017-09-15 14:17 | History & Physical Report ---
History of Present Illness Date: 09/15/17 HPI: Pt admitted overnight d/t 3-4 days of sob and dry cough. Pt denies any f/c, n/v/ d, or cp. Pt had family member who is just getting over a cold. Pt reports she has hx of CHF but does not know any specifics about this and has not followed with cardiology. Pt reports using a long acting inhaler twice a day and a rescue inhaler once a week or so when she's stable but multiple times a day in the last few days. HPI from overnight: This is a 57 y/o patient with hx of COPD and CHF (type unknown). Patient with 4 days of increased dyspnea. The patient presents to the ED and CXR no evidence of infiltrate. no failure. Labs are reassuring but patient is very tight. duoneb, solumedrol and mulitple breathing treatments. At this time improved. Patient no longer is in need of consideration for bipap. The patient describes no headache, low fever with chills, no sore throat, no neck pain. did have pleuritic chest pain, no abdomen pain, no nausea or vomiting, no focal neuro issues. At this time she initially wanted to go home but after further discussions with eD provider will stay and we will admit for further tx. Apparently does not have access to nebulizer machine at home. Past Medical History Medical History Updates: copd not oxygen or steroid dependent, DM2, CHF, tobacco abuse, morbid obesity Surgical History: Myringotomy. Tubal ligation. Appendectomy. Balloon dilation of esophagus (12/15/12). Colonoscopy with polypectomy (12/15/12). Cholecystectomy. Tonsillectomy Family History: As Above - Social History Smoking status: Current every day smoker Medications Home Medications Medication Instructions Recorded Confirmed Type Atorvastatin [Lipitor] 1 tab PO HS 09/15/17 09/15/17 History Citalopram [Celexa] 1 tab PO DAILY 09/15/17 09/15/17 History Fluticasone/Vilanterol [Breo 1 puff INH DAILY 09/15/17 09/15/17 History Ellipta 200-25 Mcg Inhaler] Hydrocodone/APAP 7.5/325 [[place] 1 - 2 tab PO Q6H PRN 09/15/17 09/15/17 History 7.5/325] Insulin NPH/Aspart 70/30 [NovoLOG 15 units SQ BID 09/15/17 09/15/17 History MIX 70-30] LORazepam [Lorazepam] 1 tab PO Q12H PRN 09/15/17 09/15/17 History Solifenacin Succinate [Vesicare] 10 mg PO DAILY 09/15/17 09/15/17 History Allergies Allergy/AdvReac Type Severity Reaction Status Date / Time Penicillins Allergy Severe SEIZURE Verified 09/15/17 03:34 Exam Vital Signs: Temperature 97.5 F 09/15/17 07:38 Pulse Rate 97 09/15/17 12:20 Respiratory Rate 22 09/15/17 11:04 Blood Pressure 125/60 09/15/17 07:38 Pulse Oximetry 96 09/15/17 12:20 Height/Weight/BMI: Height 5 ft 3 in Weight 137.4 kg Body Mass Index 53.6 - Constitutional Present: mild distress - Routine HEENT Exam Head: Present: normocephalic, atraumatic Eye: Present: EOMI ENT: Present: mucous membranes moist - Routine Respiratory Exam Present: dyspnea, wheezes - Routine Cardiovascular Exam Present: RRR, no murmur - Routine Abdominal Exam Present: soft, non distended, non tender - Routine Extremities Exam Present: no edema. Absent: cyanosis, clubbing - Routine Skin Exam Present: intact, dry. Absent: erythema - Routine Neurological Exam Present: alert, oriented X3 Results - Labs CBC & Chem 7: 09/15/17 03:46 09/15/17 03:46 Microbiology Results: Microbiology 09/15/17 09:13 Peripheral/Iv Start Gram Stain - Final Not performed 09/15/17 09:13 Peripheral/Iv Start Gram Stain - Final Not performed - ABG Interpretation ABG results: 09/15/17 11:19 ABG pH 7.388 ABG pCO2 35 ABG pO2 74.2 L ABG HCO3 21.0 L ABG Total CO2 22.1 L ABG O2 Saturation 94.7 L ABG Base Excess -3.3 L Assessment and Plan (1) Mixed hyperlipidemia Current visit: No Status: Acute (2) Diabetes mellitus type 2, uncontrolled Current visit: No Status: Acute (3) Morbid obesity with BMI of 50.0-59.9, adult Current visit: No Status: Acute (4) COPD exacerbation Current visit: Yes Status: Acute Assessment and Plan: COPD exacerbation -Likely 2/2 to viral illness, resp panel pending -On levaquin but will likely d/c if viral comes back positive, procal negative, no wbc elevation -On steroids, breathing tx -CXR not showing a clear infiltrate Type B Lactic Acidosis -No perfusion issues, not on metformin -Likely from albuterol use, pt has gotten numerous breathing tx's -Gave careful fluid administration, monitor DM -On insulin at home -Will check dosing and restart Tobacco abuse -On nicotine patch Depression/Anxiety -On ativan and celexa, will cont. HLD -Cont. home atorvastatin Ppx -Lovenox - Physician Narrative Narrative: Date: 09/15/17 Time: 1405 Hospital Course Summary Disclaimer: The visit summary below is not to be considered part of the above Progress Note.
[2017-09-15] MEDS: ALBUTEROL/IPRATROPIUM 2.5mg-0.5mg/3ml NEB AEROSOL SCH ×2 (15:05→20:54)
[2017-09-15] MEDS: HYDROCODONE/APAP 7.5 MG/325 MG TABLET PO PRN ×2 (15:19→21:41)
[2017-09-15] MEDS: INSULIN NPH/ASPART 70/30 MIX INJECTION SQ SCH (18:17)
[2017-09-15] MEDS: ARFORMOTEROL NEB 15mcg/2ml AEROSOL SCH (20:54)
[2017-09-15] MEDS: BUDESONIDE INH.SOLN 0.25mg/2ml NEB AEROSOL SCH (20:54)
[2017-09-15] MEDS ORDERED: ATORVASTATIN 20 MG TABLET PO SCH (21:00)
[2017-09-15] MEDS ORDERED: INSULIN NPH/ASPART 70/30 MIX INJECTION SQ SCH (21:00)
[2017-09-16] MEDS: METHYLPREDNISOLONE SOD SUCC 125mg/2ml INJECTION IVP SCH ×2 (06:09→08:28)
[2017-09-16] MEDS: HYDROCODONE/APAP 7.5 MG/325 MG TABLET PO PRN (06:29)
[2017-09-16] MEDS ORDERED: LEVOFLOXACIN 750 MG TABLET PO SCH (06:30)
[2017-09-16] MEDS: INSULIN ASPART 100unit/ml INJECTION SQ PRN ×2 (06:30→11:29)
[2017-09-16] MEDS: ARFORMOTEROL NEB 15mcg/2ml AEROSOL SCH (07:45)
[2017-09-16] MEDS: BUDESONIDE INH.SOLN 0.25mg/2ml NEB AEROSOL SCH (07:45)
[2017-09-16 08:11] VITALS: BP 126/63; TEMP 96.4
[2017-09-16] MEDS: INSULIN NPH/ASPART 70/30 MIX INJECTION SQ SCH (08:26)
[2017-09-16] MEDS: NICOTINE 14 MG PATCH TD SCH (08:27)
[2017-09-16] MEDS: ENOXAPARIN 40 MG/0.4 ML INJECTION SQ SCH (08:27)
[2017-09-16] MEDS ORDERED: SOLIFENACIN 5mg TABLET PO SCH (09:00)
[2017-09-16] MEDS ORDERED: SOLIFENACIN SUCCINATE 10 MG PO SCH (09:00)
[2017-09-16] MEDS ORDERED: CITALOPRAM 20 MG TABLET PO SCH (09:00)
[2017-09-16] MEDS ORDERED: NICOTINE PATCH REMOVAL TD SCH (09:00)
[2017-09-16] MEDS: ALBUTEROL/IPRATROPIUM 2.5mg-0.5mg/3ml NEB AEROSOL SCH (09:45)
[2017-09-16 09:56] VITALS: RESP 22; O2SAT 95
[2017-09-16 10:26] VITALS: PULSE 64
--- NOTE | 2017-09-16 11:01 | Discharge Summary ---
Discharge Information Date of admission: 09/15/17 05:49 Anticipated date of discharge: 09/16/17 Attending Physician: Moise De La Fuente MD Primary care physician: Ayan Mccarthy MD - Discharge Diagnosis (1) COPD exacerbation Status: Acute (2) Mixed hyperlipidemia Status: Acute (3) Diabetes mellitus type 2, uncontrolled Status: Acute (4) Morbid obesity with BMI of 50.0-59.9, adult Status: Acute Type B lactic acidosis Leukocytosis - steroid use Tobacco abuse Depression/anxiety - Laboratory Labs: 09/16/17 04:25 09/16/17 04:25 - Microbiology Microbiology 09/15/17 21:51 Sputum, Expectorated Gram Stain - Final 09/15/17 15:14 Sputum, Expectorated Gram Stain - Final 09/15/17 15:14 Sputum, Expectorated Sputum Culture - Final 09/15/17 09:13 Peripheral/Iv Start Gram Stain - Final Not performed 09/15/17 09:13 Peripheral/Iv Start Gram Stain - Final Not performed - Radiology Radiology: Date of Exam: 09/15/17 PROCEDURE: CHEST 2-VIEWS UPRIGHT (PA & LAT) FINDINGS: Mild interstitial prominence without lobar consolidation. No pleural effusion or pneumothorax. The heart size, mediastinal contours and pulmonary vascularity are within normal limits. There is no significant skeletal abnormality. IMPRESSION: Mild interstitial prominence could be due to bronchitis/atypical pneumonia. History of Present Illness HPI: Pt admitted overnight d/t 3-4 days of sob and dry cough. Pt denies any f/c, n/v/ d, or cp. Pt had family member who is just getting over a cold. Pt reports she has hx of CHF but does not know any specifics about this and has not followed with cardiology. Pt reports using a long acting inhaler twice a day and a rescue inhaler once a week or so when she's stable but multiple times a day in the last few days. HPI from overnight: This is a 57 y/o patient with hx of COPD and CHF (type unknown). Patient with 4 days of increased dyspnea. The patient presents to the ED and CXR no evidence of infiltrate. no failure. Labs are reassuring but patient is very tight. DuoNeb, solu-medrol and multiple breathing treatments. At this time improved. Patient no longer is in need of consideration for bipap. The patient describes no headache, low fever with chills, no sore throat, no neck pain. did have pleuritic chest pain, no abdomen pain, no nausea or vomiting, no focal neuro issues. At this time she initially wanted to go home but after further discussions with ED provider will stay and we will admit for further tx. Apparently does not have access to nebulizer machine at home. Objective Vital signs: Temperature 96.4 F L 09/16/17 08:00 Pulse Rate 64 09/16/17 10:15 Respiratory Rate 22 09/16/17 09:45 Blood Pressure 126/63 09/16/17 08:00 Pulse Oximetry 95 09/16/17 10:15 Height/Weight/BMI: Height 1.6 m Weight 138.6 kg Body Mass Index 53.6 - Constitutional Present: no acute distress, well nourished, well developed, morbidly obese - Routine HEENT Exam Head: Present: normocephalic Eye: Present: PERRL. Absent: conjunctival icterus, scleral injection - Routine Respiratory Exam Present: decreased breath sounds, wheezes - Routine Cardiovascular Exam Present: RRR, S1, S2 - Routine Abdominal Exam Present: soft, normoactive bowel sounds, non distended, non tender - Routine Extremities Exam Present: no edema - Routine Skin Exam Present: intact, dry, warm - Routine Neurological Exam Present: alert, oriented X3, moving all extremities, normal speech - Routine Psychiatric Exam Present: normal affect, normal thought process, cooperative Hospital Course This is a general summary of the patient's hospital course. For more details refer to the complete medical record. Hospital course: Teresa was admitted to inpatient status on 09/15/17 for COPD exacerbation secondary to rhinovirus. Initial CXR demonstrated bronchitis or atypical pneumonia. She was started on Levaquin, IV steroids, and scheduled DuoNeb treatments. Lactic acidosis was suspected secondary to multiple albuterol doses rather than sepsis and was trending down by discharge. WBC increased to 17.9 on day of discharge but this was felt to be secondary to high-dose steroids. By 09/16, she was still wheezing but was very anxious for discharge home. Ambulatory oximetry was 90-91% on room air with ambulation and she was 95% at rest. Rx for DuoNeb, nebulizer + tubing, and Prednisone were provided at discharge. Levaquin was not continued at discharge. Smoking cessation was addressed on multiple occasions, and she voiced intention to try to cut back and try OTC Nicotine patches. Recommend f/u with Dr. Mccarthy next week. Pt/family verbalized an understanding and felt safe with this discharge plan. Time spent with patient: discharge greater than 30 minutes Resuscitation Status: Full Code Discharge Plan - Discharge Disposition Discharge Date: 09/16/17 Disposition: 01 Discharged Home, Self-Care *Condition: Stable Reason For Visit (Visit label in EMR): COPD exacerbation, respiratory distress - Discharge Medications *Discharge Medications: New Albuterol/Ipratropium [Duoneb] 3 ml AEROSOL Q4H PRN #30 each PRN Reason: Wheezing Nicotine Patch [Nicoderm] 14 mg TD DAILY patch predniSONE [Prednisone] 40 mg PO DAILY #6 tab Albuterol/Ipratropium [Duoneb] 3 ml AEROSOL RTQID each Continue Citalopram [Celexa] 1 tab PO DAILY Insulin NPH/Aspart 70/30 [NovoLOG MIX 70-30] 15 units SQ BID LORazepam [Lorazepam] 1 tab PO Q12H PRN PRN Reason: anxiety Solifenacin Succinate [Vesicare] 10 mg PO DAILY Hydrocodone/APAP 7.5/325 [[place] 7.5/325] 1 - 2 tab PO Q6H PRN PRN Reason: Pain Atorvastatin [Lipitor] 1 tab PO HS Fluticasone/Vilanterol [Breo Ellipta 200-25 Mcg Inhaler] 1 puff INH DAILY - Discharge Packet/Instructions *Diet: Diabetic *Activity: Take it easy for a couple of days and increase activity level slowly. *Pain Management/Treatment: [place] PRN *Wound Care: N/A Additional Instructions: Purchase OTC nicotine patches and follow instructions. *Expected Signs/Symptoms: Cough/congestion, wheezing, fatigue, achiness -- should gradually improve *Notify Physician if: Worsening shortness of breath, chest pain, fever, passing out or any new concerns *During Business Hours Contact: Dr. Mccarthy' office. *After Business Hours Contact: The on-call provider for Dr. Mccarthy. *Pending Lab/Results: No Pending Lab - Referrals/Follow Up *Referrals/Follow Up: Ayan Mccarthy MD [Primary Care Provider] - 1 Week (will make own appointment) - Patient Handouts Patient Handouts: COPD (Chronic Obstructive Pulmonary Disease) (GEN) - Dismissal Complete Discharge Instructions are:: Complete Physician Narrative - Narrative Attestation Narrative: Date: 09/16/17 Time: 1204 S: Pt doing much better this am. Reports breathing is better and she is really anxious to go home. Pt believes she's close to her baseline and can go home and cont. her breathing tx's and do fine. It was discussed with pt that ideally one more day of in hospital tx may be beneficial for her but she insisted that she wanted to go home. A safe discharge plan was discussed wit pt and family. Pt's COPD exacerbation was likely 2/2 viral illness and her cough was dry so abx were discontinued at discharge. Pt will cont. nebulized tx's at home and continue a few more days of steroids. Pt will monitor her glucose carefully since she's on steroids. Pt and family were comfortable with the discharge plan. Recommended pt follow up with pcp in 7 days. Pt was notified to seek medical care if sx's worsened. Gen: AAOx3, no acute distress Lungs: mild wheezing in lower lobes Cards: RRR
[2017-09-16] MEDS ORDERED: INSULIN NPH/ASPART 70/30 MIX INJECTION SQ SCH (18:05)
== END 2017-09-16 11:30 | disposition home or self-care (01) | DRG 191 ==
LOC: ED 03:23 → MED 05:49
PROVIDERS: ADMIT Emergency Medicine; ATTEND Internal Medicine